=== PATIENT | female | born 1960 | race Caucasian/White ===

== ENCOUNTER 2021-01-25 07:22 | Outpatient (REF) | payer MEDICAID, SELFPAY | END 2021-01-25 07:23 | disposition home or self-care (01) | LOC: HO.HOSX 07:22 | PROVIDERS: Visit Provider Physician Assistant | DX: Z13.89 Encounter for screening for other disorder (principal) ==

== ENCOUNTER 2021-02-01 07:31 | Outpatient (REF) | payer MEDICAID, SELFPAY | END 2021-02-01 07:32 | disposition home or self-care (01) | LOC: HO.HOSX 07:31 | PROVIDERS: Visit Provider Physician Assistant | DX: Z13.89 Encounter for screening for other disorder (principal) ==

== ENCOUNTER 2021-02-27 13:26 | Outpatient (REF) | payer MEDICAID, SELFPAY | END 2021-02-27 13:27 | disposition home or self-care (01) | LOC: HO.HOSX 13:26 | PROVIDERS: Visit Provider Physician Assistant | DX: Z13.89 Encounter for screening for other disorder (principal) ==

== ENCOUNTER 2022-11-11 16:20 | Outpatient (REF) | payer MEDICAID, SELFPAY ==
[2022-11-11 18:03] LABS: MANUAL DIFF FLAG NO
[2022-11-11 18:11] LABS: Basophils Percent Auto 0.5 % (0-2); Eosinophils Absolute Auto 0.1 X10*3/uL (0.0-0.4); Eosinophils Percent Auto 2.6 % (0-4); Hematocrit 41.6 % (37.0-47.0); Imm Gran Abs Auto 0.02 X10*3/uL (0.00-0.03); Imm Gran Pct Auto 0.5 % (0.0-0.4); Lymphocytes Absolute Auto 1.1 X10*3/uL (1.2-4.9); Mean Corpuscular HGB Conc 33.7 g/dl (31.0-35.0); Mean Corpuscular Hemoglobin 31.7 pg (27.0-33.0); Mean Corpuscular Volume 94.1 fL (80.0-98.0); Mean Platelet Volume 10.7 fL (9.4-12.3); Monocytes Absolute Auto 0.3 X10*3/uL (0.1-1.2); Neutrophils Absolute Auto 2.7 x10*3/uL (2.0-8.3); Neutrophils Percent Auto 63.4 % (45-73); Platelet Count 211 X10*3/uL (160-400); Red Blood Count 4.42 X10*6/uL (4.20-5.50); Red Cell Distribution Width 12.6 % (11.0-16.0); White Blood Count 4.2 X10*3/uL (4.8-10.8)
[2022-11-11 19:04] LABS: Estimated Average Glucose 94 mg/dL; Hemoglobin A1c % 4.9 %
[2022-11-11 19:59] LABS: Folate 12.2 ng/mL (> or = 4.0); Vitamin B12 234 pg/mL (200-900)
[2022-11-11 20:22] LABS: Alanine Aminotransferase 11 U/L (0-31); Albumin Level 3.4 g/dL (3.5-5.0); Alkaline Phosphatase 58 U/L (39-117); Anion Gap 14 (12-20); Aspartate Amino Transferase 17 U/L (5-31); Bilirubin Total 0.2 mg/dL (0.0-1.0); Blood Urea Nitrogen 12 mg/dL (9-16); Calcium 9.1 mg/dL (8.4-10.2); Carbon Dioxide 26 mmol/L (22-29); Chloride 107 mmol/L (96-108); Cholesterol 198 mg/dL; Estimated Glomerular Filt Rate > 60; Glucose Random 102 mg/dL (60-115); HDL Cholesterol 60 mg/dL; LDL Cholesterol Calculated 121 mg/dl; Potassium 3.9 mmol/L (3.3-5.1); Sodium 143 mmol/L (135-145); Total Protein 5.9 g/dL (6.5-8.0); Triglycerides 87 mg/dL
[2022-11-11 20:41] LABS: TSH reflex Free T4 2.34 uIU/mL (0.32-4.0); Vitamin D 25-OH Total 14.4 ng/mL (>30)
[2022-11-12 08:49] LABS: HBS Num1 3.51 mIU/mL (0-7.99); HBc Num1 0.07 S/CO (0.00-0.79); HBsAGNum1 0.33 S/CO (0.00-0.99); HIV AB/AG Nonreactive (Nonreactive); HIV Num 1 0.06 S/CO (0.00-0.99); Hepatitis B Core Antibody Nonreactive (Nonreactive); Hepatitis B Surface Antigen Negative (Negative); ~HepC Num1 0.82 S/CO (0.00-0.79); ~Hepatitis A Antibody IgM Nonreactive (Nonreactive); ~Hepatitis B Surface Antibody NONREACTIVE (Nonreactive)
[2022-11-12 08:55] LABS: Syphilis Screen Nonreactive (Nonreactive)
[2022-11-12 10:16] LABS: ~HepC Num2 0.93; ~HepC Num3 0.85; ~Hepatitis C Antibody GRAYZONE (Nonreactive)
== END 2022-11-11 16:21 | disposition home or self-care (01) ==
LOC: HO.HHCL 16:20
PROVIDERS: Visit Provider Registered Nurse
DX: Z00.00 Encounter for general adult medical examination without abnormal findings (principal); Z20.2 Contact with and (suspected) exposure to infections with a predominantly sexual mode of transmission; E66.9 Obesity, unspecified; R03.0 Elevated blood-pressure reading, without diagnosis of hypertension
CPT/HCPCS: 36415; 80053; 80061; 82306; 82607; 82746; 83036; 84443; 85025; 86704; 86706; 86709; 86780; 86803; 87340; 87389

== ENCOUNTER 2023-07-01 12:23 | Outpatient (REF) | payer OTHER, MEDICAID, SELFPAY ==
--- NOTE | ~2023-07-01 | XR_ITS ---
EXAMINATION: XR BILATERAL KNEES CLINICAL INFORMATION: Chronic bilateral knee pain. Patient states pain for years. COMPARISON: Right knee 05/20/2019. TECHNIQUE: AP and lateral views of the left knee. AP, lateral and axial views of the right knee. FINDINGS: Right Knee: The bones are diffusely demineralized. Mild narrowing of the medial compartment. Small tricompartmental osteophytes. Trace suprapatellar effusion. Mild degenerative changes in the patellofemoral compartment. Left Knee: The bones are diffusely demineralized. Trace suprapatellar effusion. Mild narrowing of the lateral compartment. Tricompartmental osteophytes. Arterial calcifications. XR/XR knee LT 2V IMPRESSION: Mild degenerative changes in the bilateral knees.
--- NOTE | ~2023-07-01 | XR_ITS ---
EXAMINATION: XR BILATERAL KNEES CLINICAL INFORMATION: Chronic bilateral knee pain. Patient states pain for years. COMPARISON: Right knee 05/20/2019. TECHNIQUE: AP and lateral views of the left knee. AP, lateral and axial views of the right knee. FINDINGS: Right Knee: The bones are diffusely demineralized. Mild narrowing of the medial compartment. Small tricompartmental osteophytes. Trace suprapatellar effusion. Mild degenerative changes in the patellofemoral compartment. Left Knee: The bones are diffusely demineralized. Trace suprapatellar effusion. Mild narrowing of the lateral compartment. Tricompartmental osteophytes. Arterial calcifications. XR/XR knee RT 3V IMPRESSION: Mild degenerative changes in the bilateral knees.
== END 2023-07-01 12:24 | disposition home or self-care (01) ==
LOC: HO.HHCX 12:23
PROVIDERS: Visit Provider Student in an Organized Health Care Education/Training Program
DX: M25.561 Pain in right knee (principal); M25.562 Pain in left knee; G89.29 Other chronic pain
CPT/HCPCS: 73560; 73562

== ENCOUNTER 2023-10-17 08:35 | Outpatient (REF) | payer OTHER, MEDICAID, SELFPAY ==
[2023-10-17 10:21] LABS: Hematocrit 44.5 % (37.0-47.0); Hemoglobin 14.9 g/dl (12.0-16.0); Mean Corpuscular HGB Conc 33.5 g/dl (31.0-35.0); Mean Corpuscular Hemoglobin 31.2 pg (27.0-33.0); Mean Corpuscular Volume 93.3 fL (80.0-98.0); Platelet Count 212 X10*3/uL (160-400); Red Blood Count 4.77 X10*6/uL (4.20-5.50); Red Cell Distribution Width 12.7 % (11.0-16.0); White Blood Count 2.9 X10*3/uL (4.8-10.8)
[2023-10-17 10:38] LABS: Estimated Average Glucose 103 mg/dL; Hemoglobin A1c % 5.2 % (<6.0)
[2023-10-17 11:11] LABS: Alanine Aminotransferase 8 U/L (0-31); Albumin Level 3.6 g/dL (3.5-5.0); Alkaline Phosphatase 56 U/L (39-117); Anion Gap 18 (12-20); Aspartate Amino Transferase 15 U/L (5-31); Bilirubin Total 0.2 mg/dL (0.0-1.0); Blood Urea Nitrogen 14 mg/dL (9-16); Carbon Dioxide 24 mmol/L (22-29); Chloride 109 mmol/L (96-108); Cholesterol 185 mg/dL (<200); Estimated Glomerular Filt Rate > 60; Glucose Random 94 mg/dL (60-115); HDL Cholesterol 51 mg/dL (>40); LDL Cholesterol Calculated 111 mg/dL (<100); Potassium 4.5 mmol/L (3.3-5.1); Sodium 146 mmol/L (135-145); Total Protein 6.2 g/dL (6.5-8.0); Triglycerides 119 mg/dL (<150)
[2023-10-17 11:16] LABS: TSH reflex Free T4 2.19 uIU/mL (0.32-4.0)
[2023-10-17 11:24] LABS: Folate 6.8 ng/mL (> or = 4.0); Vitamin B12 225 pg/mL (200-900)
[2023-10-17 13:05] LABS: CT PCR NOT DETECTED (Not Detect.); NG PCR NOT DETECTED (Not Detect.)
[2023-10-19 03:33] LABS: Syphilis Screen Nonreactive (Nonreactive)
[2023-10-19 03:42] LABS: HBS Num1 4.09 mIU/mL (0-7.99); HBc Num1 0.08 S/CO (0.00-0.79); HBsAGNum1 0.27 S/CO (0.00-0.99); HIV AB/AG Nonreactive (Nonreactive); HIV Num 1 0.05 S/CO (0.00-0.99); Hepatitis B Core Antibody Nonreactive (Nonreactive); Hepatitis B Surface Antigen Negative (Negative); ~HepC Num1 0.81 S/CO (0.00-0.79); ~Hepatitis B Surface Antibody NONREACTIVE (Nonreactive)
[2023-10-19 04:17] LABS: ~HepC Num3 0.83; ~Hepatitis C Antibody GRAYZONE (Nonreactive)
[2023-10-23 16:04] LABS: HCV Log PCR <1.18 NOT DETECTED Log IU/mL (NOT DETECTED); HepC Viral Load <15 NOT DETECTED IU/mL (NOT DETECTED)
== END 2023-10-17 08:36 | disposition home or self-care (01) ==
LOC: HO.LAB 08:35
PROVIDERS: PCP Student in an Organized Health Care Education/Training Program; Visit Provider Student in an Organized Health Care Education/Training Program
DX: Z00.00 Encounter for general adult medical examination without abnormal findings (principal); Z13.1 Encounter for screening for diabetes mellitus; Z13.89 Encounter for screening for other disorder
CPT/HCPCS: 36415; 80053; 80061; 82306; 82607; 82746; 83036; 84443; 85027; 86704; 86706; 86780; 86803; 87340; 87389; 87491; 87522; 87591

== ENCOUNTER 2024-11-21 14:19 | Outpatient (REF) | payer OTHER, SELFPAY ==
--- NOTE | ~2024-11-21 | XR_ITS ---
EXAMINATION: XR HIP, LEFT CLINICAL INFORMATION: pt w hx of right hip surgery w ongoing pain COMPARISON: None available. TECHNIQUE: Two views of the left hip. FINDINGS: Total hip arthroplasty has been performed There is lucency at the bone metal interface of the proximal femoral stem, Gruen zones 1 and 6-7 . There is heterotopic calcification cephalad to the prosthetic neck. XR/XR hip LT min 2V IMPRESSION: Left total hip arthroplasty. There is lucency along the proximal femoral stem, Gruen zones 1 and 6-7 , probably insufficient to result in gross hardware loosening. There is no sign of hardware migration. Electronically signed by: Marcelino Root MD 11/21/2024 04:40 PM EDT
--- NOTE | ~2024-11-21 | XR_ITS ---
Exam: X-ray, bilateral knees.XR KNEE 1-2 VIEWS BILATERAL TECHNIQUE: AP standing, lateral lower extremity joint, bilateral knees INDICATION: chronic bl knee pain COMPARISON: July 01, 2023 FINDINGS: RIGHT KNEE: There is mild narrowing of the lateral joint space and mild to moderate narrowing of the medial joint space. There is no joint effusion. There are small to moderate tricompartmental marginal osteophytes. LEFT KNEE: There is no joint effusion. There is mild to moderate lateral greater than medial joint space narrowing similar to the prior. [id number] tricompartmental marginal ossified is present. There is chronic focal ossification in the region of the MCL near the adductor tubercle. There is focal ossification in the soft tissues lateral to the lateral femoral metaphysis. XR/XR Knee Hai 1or 2V IMPRESSION: Right knee: Stable mild to moderate osteoarthritis Left knee: Stable mild to moderate osteoarthritis. Remote MCL partial tear near the adductor tubercle with associated calcification. Electronically signed by: Marcelino Root MD 11/21/2024 04:38 PM EDT
--- OUTSIDE RECORDS SUMMARY | 2024-11-21 14:24 | XMS_ITS | Encounter Summary ---
Author Organization [employer] Address [address] [place] [address] Care Team Providers Care Technical Sales Representatives Name Role Phone Pat Walker Primary Care Provider [phone]- [phone] Maia Yarbrough MD Primary Care Pro vider Encounter Details Date Type Department Care Team (Late st Contact Info) Description 03/29/2022 Abstract [facility] [address] [place] [address] [phone] Provider, MD Fernanda Social History Tobacco Use Types Packs/Day Years Used Date Smoking Tobacco: Never Assessed Comments Unknown Sex and Gender Information Value Date Recorded Sex Assigned at Female 02/17/2022 10:14 AM EDT Legal Sex Female 10:14 AM EDT Gender Identity Female 02/17/2022 10:14 AM EDT Sexual Orientation Straight 07/01/2023 11 :24 AM EDT documented as of this encounter Plan of Treatment Upcoming Encounters Date Type Department Care Team (Late st Contact Info) Description 01/19/2025 2:45 PM EDT Office Visit [facility] [address] [place] [phone] Maia Yarbrough MD [address] [place] [address] [phone] documented as of this encounter Visit Diagnoses Not on filedocumented in this encounter Care Teams Technical Sales Representatives Relationship Specialty Start Date End Date Pat Walker FNP PCP - General Family Medicine 03/19/22 11/27/22 Maia Yarbrough MD [address] [place] [phone] PCP - General Internal Medicine 11/28/22 documented as of this encounter
--- OUTSIDE RECORDS SUMMARY | 2024-11-21 14:24 | XMS_ITS | Clinical Summary ---
Author Organization [facility] Address [address] [place] [address] Care Team Providers Care Agriculture Professor Name Role Phone Unavailable Primary Care Provider Unavailabl e Medical History Medical History Date Comments Arthritis DX:Arthritis Asthma DX:Asthma Social History Tobacco Use Types Packs/Day Years Used Date Smoking Tobacco: Every Day Smokeless Tobacco: Never Alcohol Use Standard Drinks/Week Comments Not Currently 0 (1 standard drink = 0.6 oz pur e alcohol) Comments Unknown Sex and Gender Information Value Date Recorded Sex Assigned at Female 07/05/2024 9:07 AM EDT Legal Sex Female 2:36 PM EST Gender Identity Female 07/05/2024 9:07 AM EDT Sexual Orientation Not on file Obstetrics History Plan of Treatment Upcoming Encounters Date Type Department Care Team (Late st Contact Info) Description 11/25/2024 9:00 AM EDT Appointment [facility] [address] [phone] Health Maintenance Due Date Last Done Comments DTaP,Tdap,and Td Vaccines (1 - Tdap) 1977 Pneumococcal Vaccine: 50+ Ye ars (1 of 2 - PCV) 1977 Zoster Vaccines (1 of 2) 02/28/2008 Colorectal Cancer Screening: Colonoscopy 03/19/2022 Hepatitis C Screening 03/19/2022 Osteoporosis Screening (Bone Density Screening) 03/19/2022 Social Influencers of Health Screening 03/19/2022 Falls Risk Assessment 2023 COVID-19 Vaccine (1 - 2023-2 5 season) 2023 Depression Screening 04/20/2024 Influenza Vaccine (#1) 2024 Breast Cancer Screening 07/16/2025 07/17/2023 RSV Immunization Adult Patie nts (1 - 1-dose 75+ series) 2033 HIB Vaccines Aged Out No longer eligi ble based on patient's age to complete this topic HPV Vaccines Aged Out No longer eligi ble based on patient's age to complete this topic Hepatitis A Vaccines Aged Out No long er eligible based on patient's age to complete this topic Hepatitis B Vaccines Aged Out No long er eligible based on patient's age to complete this topic IPV Vaccines Aged Out No longer eligi ble based on patient's age to complete this topic MMR Vaccines Aged Out No longer eligi ble based on patient's age to complete this topic Meningococcal ACWY Vaccine Aged Out N o longer eligible based on patient's age to complete this topic Meningococcal B Vaccine Aged Out No l onger eligible based on patient's age to complete this topic RSV Immunization Patients Un manuel 20 months Aged Out No longer eligible b ased on patient's age to complete this topic Varicella Vaccines Aged Out No longer eligible based on patient's age to complete this topic Procedures Procedure Name Priority Date/Time Associated Diagnosis Comments [facility] SCREENING DIGITAL Routine 07/17/2023 8:37 AM EDT Encounter for screening mammogram for malignant neoplasm of breast from Last 3 Months or Most Recently Relevant to Health Maintenance Results * [facility] SCREENING [facility]IGITAL (07/17/2023 8:37 AM EDT) Anatomical Region Laterality Modality Mammography 07/13/2023 3:09 PM EDT Narrative 07/17/2023 8:37 AM EDT [facility] Diagnostic Imaging Department [address] [place], [place] [id number] Patient: VIANEYJamiROXI./Age/Sex: 1960 - 63 - F Unit#: [id number] [facility] Mn[facility]onic/Ordering Site: [facility] Ordering Physician: ROXI DAHL MD An[facility] Screening Digital - 07/13/23 - 1533 Report Status:Signed EXAM: [facility] Screening Digital EXAM DATE AND TIME: 07/13/2023 3:33 PM HISTORY: Annual screening COMPARISON: None TECHNIQUE: Bilateral digital breast tomosynthesis was performed in the CC and MLO projections. Computer aided detection with Chartbeat 3D 3.1 was employed. TISSUE DENSITY: b. There are scattered areas of fibroglandular density. FINDINGS: There are 2 possible asymmetries in the left breast seen on the MLO view. There is a nodular density abutting the skin in the lower inner quadrant of the left breast. No associated calcifications or architectural distortion. There is a possible asymmetry in the retroareolar left breast seen best on the MLO view. No associated calcifications or architectural distortion. The right breast is unremarkable. IMPRESSION: There are 2 possible asymmetries in left breast as above. Recommend diagnostic mammogram of the left breast with spot compression MLO tomographic images. BI-RADS: Category 0: Incomplete - Need Additional Imaging Evaluation Dictating Physician: ALIZA PHELAN MD Electronically Signed by: ALIZA PHELAN MD Dic Date/Time: 07/17/23833 Sign date/Time: 07/17/23 0837 Procedure Note Aliza Phelan MD - 12/07/2023 [facility] Diagnostic Imaging Department [address] [place], [place] [id number] Patient: ROXI ROACH/Age/Sex: 1960 - 63 - F Unit#: [id number] Location/Status: [facility]/REG CLI Mnemonic/Ordering Site: [facility] Ordering Physician: ROXI DAHL MD [facility] Screening Digital - 07/13/23 - 1533 Report Status:Signed EXAM: [facility] Screening Digital EXAM DATE AND TIME: 07/13/2023 3:33 PM HISTORY: Annual screening COMPARISON: None TECHNIQUE: Bilateral digital breast tomosynthesis was performed in the CCand MLO projections. Computer aided detection with CareFlash AI 3D 3.1was employed. TISSUE DENSITY: b. There are scattered areas of fibroglandular density. FINDINGS: There are 2 possible asymmetries in the left breast seen on the MLOview. There is a nodular density abutting the skin in the lower inner quadrantof the left breast. No associated calcifications or architectural distortion.There is a possible asymmetry in the retroareolar left breast seen best on theMLO view. No associated calcifications or architectural distortion. The right breast is unremarkable. IMPRESSION: There are 2 possible asymmetries in left breast as above. Recommenddiagnostic mammogram of the left breast with spot compression MLO tomographicimages. BI-RADS: Category 0: Incomplete - Need Additional Imaging Evaluation Dictating Physician: ALIZA PHELAN MD Electronically Signed by: ALIZA PHELAN MD Dic Date/Time: 07/17/2334 Sign date/Time: 07/17/23 0837 Roxi Wallace MD IMG BI PROCEDURES Final Result from Last 3 Months or Most Recently Relevant to Health Maintenance Insurance Member Subscriber Plan / Payer (Ef fective 2023-Present) Name:Roxi Roach Relation to Subscriber:Self Name:Roxi Roach Payer ID:[id number] Group ID:[id number] Type:Not on file Address: [facility] [address] [id number]
== END 2024-11-21 14:20 | disposition home or self-care (01) ==
LOC: HO.HHCX 14:19
PROVIDERS: Visit Provider Student in an Organized Health Care Education/Training Program
DX: M25.552 Pain in left hip (principal); M25.561 Pain in right knee; M25.562 Pain in left knee; G89.29 Other chronic pain; M79.89 Other specified soft tissue disorders; F10.10 Alcohol abuse, uncomplicated; Z96.641 Presence of right artificial hip joint
CPT/HCPCS: 73502; 73560

== ENCOUNTER → 2024-11-21 14:19 | Outpatient (BNV) | payer OTHER, SELFPAY | PROVIDERS: Visit Provider Radiology Diagnostic Radiology | DX: M25.552 Pain in left hip (principal); M17.0 Bilateral primary osteoarthritis of knee | CPT/HCPCS: 73502; 73560 ==

== ENCOUNTER 2024-12-26 14:25 | Outpatient (AMB) | payer OTHER, SELFPAY ==
--- NOTE | 2024-12-26 14:36 | A.OFFVIS_ITS ---
Intake Visit Reasons: New Pt - Bilateral Knee OA Intake Note: Maia is a 64 year old female who presents today as a New Patient with complaints of Bilateral Knee Pain. Patient was referred by her PCP due to ongoing and worsening bilateral knee pain and Right Hip Pain. Patient reports that she has had ongoing pain that has worsened since she has stopped illicit drug use and alcohol. No history of cortisone injections. Currently she is at an inpatient program in [facility]. She smokes about 10 cigarettes a day. History of substance abuse - reported to PCP that she has been 5months sober from alcohol and crack cocaine, staying at [facility] in [place]. She will be discharged from this facility in 3 months. History of Left EPI at [facility]- She has utilized Lidocaine patches and topical Diclofenac with minimal relief. Xrays done at [facility] 11/21/24: Right knee: Stable mild to moderate osteoarthritis Left knee: Stable mild to moderate osteoarthritis. Remote MCL partial tear near the adductor tubercle with associated calcification Allergies No Known Allergies (No Known Allergies*) Allergy (Unverified 02/04/23 15:23) HPI HPI New Pt - Bilateral Knee OA: Details: Maia is a 64 year old female who presents today as a New Patient with right hip and knee pain. Patient was referred by her PCP due to ongoing and worsening bilateral knee pain and Right Hip Pain. Patient reports that she has had ongoing pain that has worsened since she has stopped recreational drug use and alcohol. No history of cortisone injections. Currently she is at an inpatient program in [place]. She complains of difficulty ambulating and requiring an assistive device at times. She smokes about 10 cigarettes a day. History of substance abuse - reported to PCP that she has been 5months sober from alcohol and crack cocaine, staying at [facility] in [place]. She will be discharged from this facility in 3 months. History of Left EPI at [facility]- She has utilized Lidocaine patches and topical Diclofenac with minimal relief. [facility] Medical History (Updated 01/02/25 @ 08:09 by Roderick Fountain MD) Hypertension COPD (chronic obstructive pulmonary disease) Nicotine dependence, cigarettes, uncomplicated Alcohol use disorder Substance abuse Anxiety and depression Insomnia Osteoarthritis of knees, bilateral Urinary incontinence Hearing loss Family history of breast cancer Surgical History (Updated 12/23/24 @ 09:31 by Marisel Salazar PA-C) History of left hip replacement (~2012) Family History (Updated 12/23/24 @ 09:21 by Marisel Salazar PA-C) Mother Breast cancer Maternal Grandmother Breast cancer Social History (Updated 12/14/24 @ 10:08 by Meagan Garcia CMA) Substance Use Type: Crack/Cocaine Last Used Substance Other:: 5 months as of 11/22/24 - seeing [facility] Physical Exam Extrem Other: + gait antalgia +impingmeent and + [place] Internal rotation of the right hip is very limited Right knee with medial tenderness and no effusion. 5-125 bilaterally Stable to v/v stress bilaterally Results Reviewed Results Reviewed: I personally reviewed relevant radiographs. Moderate to severe bilateral knee OA Left EPI in expected post operative position with no hardware complications or evidence of loosening Assessment & Plan Assessment & Plan (1) Osteoarthritis of knees, bilateral: Code(s): M17.0 - Bilateral primary osteoarthritis of knee Category: Medical Plan: Currently doing ok. Here to re-establish care. In active recovery. No intervention warranted (2) Primary osteoarthritis of right hip: Code(s): M16.11 - Unilateral primary osteoarthritis, right hip Category: Medical Plan: Radiographs to be obtained at follow up in 3 months. Currently complaining of right hip pain with limited motion. She will f/u in 3 months. Coding Level of Care Code New Pt Level 3 (44180) Diagnoses Osteoarthritis of knees, bilateral M17.0 Primary osteoarthritis of right hip M16.11
--- OUTSIDE RECORDS SUMMARY | 2024-12-26 16:49 | XMS_ITS | Encounter Summary ---
Author Organization [employer] Address [address] [place] [address] [address] [place] [address] Care Team Providers Care Power Press Tender Name Role Phone Pat Walker Primary Care Provider Maia Figueroa MD Primary Care Pro vider Encounter Details Date Type Department Care Team (Late st Contact Info) Description 03/29/2022 Abstract [facility] MED[facility] [address] [place] [phone] Provider, MD Fernanda Social History Tobacco Use [...] Description 01/19/2025 2:45 PM EDT Office Visit [facility] [address] [place] [phone] Maia Yarbrough MD [address] [place] [phone] documented as of this encounter Visit Diagnoses Not on filedocumented in this encounter Care Teams Power Press Tender Relationship Specialty Start Date End Date Pat Walker FNP PCP - General Family Medicine 03/19/22 11/27/22 Maia Yarbrough MD [address] [place] [address] [phone] PCP - General Internal Medicine 11/28/22 documented as of this encounter
--- OUTSIDE RECORDS SUMMARY | 2024-12-26 16:49 | XMS_ITS | Clinical Summary ---
Author Organization [employer] Address [address] [facility] [address] [place] [address] Care Team Providers Care Senior Sales Associate Name Role Phone Maia Yarbrough MD Primary Care Pro vider Allergies No known active allergies Medications * This document contains information received from the source organization and may not represent a complete record from that organization. Blood Pressure Monitor kit 1 Device Once per day. 1 kit 4 Active hydrOXYzine HCl (Atarax) 25 MG tablet 5 Active albuterol (ProAir HFA) 108 (90 Base) MCG/ACT inhalerIndicatio ns:Cigarette nicotine dependence without complication Inhale 2 puffs every 4 (four) hours if needed for wheezing. 18 g 3 5 Active lidocaine (Lidoderm) 5 % patchIndications :Chronic pain of both knees Apply 1 patch topically Once per day. Remove & discard patch within 12 hours or as directed by MD. 30 patch 2 5 Active amLODIPine (Norvasc) 5 MG tablet Take 1 tablet (5 mg) by mouth Once per day. 90 tablet 5 11/22/19 26 Active Umeclidinium Dixon 62.5 MCG/ACT aerosol powder Inhale 1 Act (62.5 mcg) Once per day. 30 Act 5 5 11/22/19 26 Active melatonin 10 MG tablet Take 1 tablet (10 mg) by mouth if needed at bedtime (insomnia). 90 tablet 5 Active Diclofenac Sodium 1 % gel Apply 1 Application topically if needed each day (kne pain). 50 g 2 5 Active Active Problems Problem Noted Date Diagnosed Date Left hip pain 11/22/2024 Cocaine use 11/22/2024 Localized swelling of both lower legs 11/22/2024 Leukopenia 11/22/2024 Hypertension 10/06/2023 Bereavement 08/27/2023 Assessment & Plan (09/01/2023 12:50 PM EDT): During IBH Consult Maia presenting with depressed mood, loss of interests/pleasure , changes in sleep difficulty staying asleep , change in appetite or weight reduce appetite, psychomotor retardation, trouble concentrating, fatigue/loss of energy, inappropriate guilt , hopelessness, worthlessness , difficulty concentrating, extreme sadness when talking about loved ones who , difficulty accepting their ; for a period of 6-12 mo, for all symptoms in the context of and housing. Maia feels emotionally overwhelmed due to experiencing different stressors. Her brother and sibling early in 2022. Currently living with friends; home environment is not appropriate for telehealth visits. Pt feels discouraged. PLAN: (check all that apply) Continue with current services (defined as services in the past 12 months) . Pt is currently engaged in services with [facility]. However, pt is not satisfied with telehealth visits due to lack of privacy for calls. She will request transfer to new therapist for in-person visits and will let clinician know if extra support is needed. Obesity 07/02/2023 Hearing loss 07/02/2023 Chronic pain of both knees 07/02/2023 Family history of breast cancer 07/02/2023 History of ETOH abuse 07/02/2023 Urinary incontinence 07/02/2023 Poor memory 07/02/2023 Depression, recurrent 07/01/2023 Assessment & Plan (09/01/2023 12:50 PM EDT): During IBH Consult Maia presenting with depressed mood, loss of interests/pleasure , changes in sleep difficulty staying asleep , change in appetite or weight reduce appetite, psychomotor retardation, trouble concentrating, fatigue/loss of energy, inappropriate guilt , hopelessness, worthlessness , difficulty concentrating, extreme sadness when talking about loved ones who , difficulty accepting their ; for a period of 6-12 mo, for all symptoms in the context of and housing. Maia feels emotionally overwhelmed due to experiencing different stressors. Her brother and sibling early in 2022. Currently living with friends; home environment is not appropriate for telehealth visits. Pt feels discouraged. PLAN: (check all that apply) Continue with current services (defined as services in the past 12 months) . Pt is currently engaged in services with [facility]. However, pt is not satisfied with telehealth visits due to lack of privacy for calls. She will request transfer to new therapist for in-person visits and will let clinician know if extra support is needed. Tympanic membrane perforation, left 11/28/2022 Overview (11/28/2022): Hear loss L ear since 06/26/22 Chronic Referred Audiology 06/26/22 Assessment & Plan (11/28/2022 3:22 PM EDT): TM perforated on exam with blood in canal Concern or injury No infection Pt will call Audiology and set up appt F/u 3 months or sooner PRN with new PCP Health care maintenance 06/29/2022 Overview (11/28/2022): Routine Health Maintenance: Immunizations: Due shingles vaccine, discuss next visit HIV: Nonreactive 11/11/22 Hep C: GRAYZONE Comment: Antibodies to HCV may or may not be present. Suggest repeatanti-HCV in 4-6 weeks and/or HCV viral load if clinically indicated. Hepatitis B: nonreactive surface antibodies due repeat booster vaccine series Pap Smear: 06/11/2020 NILM HPV Neg Mammogram: No records, reports she had it in 2021 BMD: >age 65. Discuss next visit Colonoscopy: Due colonoscopy, refer to GI Lung cancer: Every day smoker, 53 pack year history. Due screening Eye: Discuss next visit Dental: Discuss next visit History of total left hip arthroplasty Overview (05/28/2022): Operation in 2013 Osteopenia 05/28/2022 Overview (05/28/2022): 2013 skeletal survey finding: Multiple lucencies in bilateral femoris, proximal left tibia and fibula. These are suspicious for multiple myeloma . Differential diagnosis includes severe iatrogenic osteopenia versus steroid-induced. Recommend bone scan or iliac crest biopsy. There is severe osteoarthritic changes with moderate spurring in both hip joints with deformity of femoral heads. Anxiety 06/01/2019 Chronic idiopathic neutropenia 06/01/2019 Chronic obstructive lung disease 06/01/2019 Overview (11/28/2022): Reports poor breathing Current daily tobacco use Assessment & Plan (11/28/2022 3:19 PM EDT): Refer pulmonology F/u 3 months or sooner PRN Nicotine dependence 06/01/2019 Overview (11/11/2022): Discussed smoking cessation Declined nicotine patches Refill JEANETTE PRN Needs followup on COPD and breathing Assessment & Plan (11/28/2022 3:18 PM EDT): Discussed smoking cessation Declined nicotine patches Refill JEANETTE, use PRN Needs followup on COPD and breathing F/u 3 months with new PCP or sooner PRN Osteoarthritis of right hip 06/01/2019 Overview (11/11/2022): Pt reports continued R hip pain Altered gait, poor balance DME for walker, using daily Lidocaine patches, nabumetone 500 mg BID Assessment & Plan (11/11/2022 3:48 PM EDT): Refill lidocaine patches Continued pain, improved with nabumetone F/u PRN Primary insomnia 06/01/2019 Encounters Date Type Department Care Team Description 12/08/2024 Telephone [facility] [address] [place] [address] Maia Yarbrough MD Request For Order(s) 11/22/2024 Telephone [facility] [address] [place] [address] Glenda Baker appointment reminder 11/22/2024 Results Follow-Up [facility] [address] [place] [address] Maia Yarbrough MD XR Hip 2 or 3 Views Left 11/21/2024 1:00 PM EDT Office Visit [address] [address] Maia Yarbrough MD Colon cancer screening (Primary Dx); Cigarette nicotine dependence without complication; Postmenopausal; Chronic pain of both knees; Pain of right hip; Chronic bronchitis, unspecified chronic bronchitis type (CMS/HCC); Swelling of lower extremity; Left hip pain; Health care directive on file; Alcohol abuse; Dietary counseling; Exercise counseling; Hypertension, unspecified type; Class 1 obesity due to excess calories without serious comorbidity with body mass index (BMI) of 34.0 to 34.9 in adult; Health care maintenance; History of ETOH abuse; Poor memory; Cocaine use; Localized swelling of both lower legs; Leukopenia, unspecified type 11/21/2024 Travel 11/18/[address] [address] Maia Yarbrough MD chartprep 11/11/2024 Patient Outreach [address] [address] Maia Yarbrough MD Pre-visit Planning (Pre-visit planning - LVM ) 11/02/2024 Orders Only [facility] [address] [place] [address] Edwin Phillips MD Mass of left breast, unspecified quadrant from Last 3 Months Immunizations Immunization Administration Dates Next Due Influenza injectable quadriv alent preservative free 06/26/2022,06/11/2020,05/20/2019 Pfizer Covid-19 Vaccine 12+ 07/01/2023 Pneumococcal Conjugate PCV 20 11/11/2022 Pneumococcal Polysaccharide PPSV23 05/20/2019 Tdap 05/20/2019 Family History Medical History Relation Name Comments Stroke Brother Stroke Father Breast cancer Maternal Grandmother Breast cancer at 67 Mother Heart disease Sister Relation Name Status Comments Brother Father Maternal Grandmother Mother Sister Social History Tobacco Use Types Packs/Day Years Used Date Smoking Tobacco: Every Day Cigarettes 1 53 Smokeless Tobacco: Never Tobacco Cessation:Ready to Q uit: Not Asked; Counseling Given: Not Answered Comments:Started smoking 9 y of age ,never stopped, smoking until now-until now 52 y of smoking -in average 10 cig a day .PQT calc a year 25 Alcohol Use Standard Drinks/Week Comments Yes 2 (1 standard drink = 0.6 oz pure alcohol) weekly-beers 6 cans , hx of heavy drinking Depression Answer Date Recorded Patient Health Questionnaire-9 Score 16 09/01/2023 Patient Health Questionnaire-9 Score 16 09/01/2023 Last PHQ-9: Questionnaire Data Not on file 0 09/01/2023 Housing Stability Answer Date Recorded What is your housing situation today? I do not have housing (Staying with others, in a hotel, in a assisted, living outside on the street, on a beach, in a car, or in a park 11/21/[address] you li ve. Do you have problems with any of the following? None of the above 11/21/2024 Food Insecurity Answer Date Recorded Within the past 12 months, y ou worried that your food would run out before you got money to buy more: Never True 11/21/2024 Within the past 12 months,th e food you bought just didn't last and you didn't have enough money to get more: Never True 07/2024 Transportation Answer Date Recorded In the past 12 months, has l ack of transportation kept you from medical appts, meetings, work or from getting things needed for daily living? No 11/21/2024 Utilities Answer Date Recorded In the past 12 months, has t he electric, gas, oil or water company threatened to shut off services in your home? No 11/21/2024 Depression Answer Date Recorded Patient Health Questionnaire-2 Score 4 09/01/2023 Internet Access Answer Date Recorded Internet Access Q1 I am not sure 11/21/2024 Internet Access Q2 Not on file 11/21/2024 Comments Unknown Sex and Gender Information Value Date Recorded Sex Assigned at Female 02/17/2022 10:14 AM EDT Legal Sex Female 10:14 AM EDT Gender Identity Female 02/17/2022 10:14 AM EDT Sexual Orientation Straight 07/01/2023 11 :24 AM EDT Last Filed Vital Signs Vital Sign Reading Time Taken Comments Blood Pressure 146/62 11/21/2024 1:00 PM EDT Pulse 91 11/21/2024 1:00 PM EDT Temperature 36.3 C (97.3 F) 11/21/2024 1:00 PM EDT Respiratory Rate 20 11/21/2024 1:00 PM EDT Oxygen Saturation 99% 11/21/2024 1:00 PM EDT Inhaled Oxygen Concentration - - Weight 83.9 kg (185 lb) 11/21/2024 1:00 PM EDT Height 160 cm (5' 3 ) 11/21/2024 1:00 PM EDT Body Mass Index 32.77 11/21/2024 1:00 PM EDT Plan of Treatment Upcoming Encounters Date Type Department Care Team (Late st Contact Info) Description 01/19/2025 2:45 PM EDT Office Visit [facility] [address] [place], [place] [phone] Maia Yarbrough MD [address] [place], [place] [phone] Health Maintenance Due Date Last Done Comments CT Colonography 1960 Colonoscopy 1960 Colorectal Cancer Screening 1960 FIT DNA/Cologuard 1960 FIT 1960 FOBT 1960 Sigmoidoscopy 1960 Lung Cancer Screening 02/28/2008 RSV Patients and Patients Aged 60 years or older (1 - Risk 60-74 years 1-dose series) 2018 COVID-19 Vaccine (2 - Pfizer risk series) 07/22/2023 07/01/2023 Depression Monitoring 03/03/2024 09/01/2023 , 09/01/2023 Influenza Vaccine (#1) 2024 , 06/11/2020, 05/20/2019 Zoster Vaccines (2 of 2) 01/31/2025 12/06/2024 HPV/Cotest 06/11/2025 06/11/2020 Pap Smear 06/11/2025 06/11/2020 Alcohol/Substance Use Screening 11/21/2025 11/21/2024 SDOH Screening 11/21/2025 11/21/2024 Tobacco Screening 11/21/2025 11/21/2024 Mammogram 11/25/2026 11/25/2024, 11/25/2024, 07/23/2023 Lipid Panel 10/16/2028 10/17/2023, 11/11/2022, 12/25/2020 DTaP/Tdap/Td Vaccines (2 - T d or Tdap) 05/20/2029 05/20/2019 Pneumococcal Vaccine: 50+ Years Completed 11/11/2022, 05/20/2019 Hepatitis C Screening Completed 10/17/2023 , 10/17/2023, 11/11/2022 HIB Vaccines Aged Out No longer eligi [...] patient's age to complete this topic Meningococcal Vaccine Aged Out No cheryl norman eligible based on patient's age to complete this topic RSV under 20 months Aged Out No longe r eligible based on patient's age to complete this topic Rotavirus Vaccines Aged Out No longer eligible based on patient's age to complete this topic Procedures Procedure Name Priority Date/Time Associated Diagnosis Comments XR HIP 2 OR 3 VIEWS LEFT Routine 11/21/2024 4:15 PM EDT Left hip pain XR KNEE 1-2 VIEWS BILATERAL Routine 11/21/2024 1:44 PM EDT Chronic pain of both knees HEPATITIS C AB W/REFL TO HCV RNA, QN, PCR Routine 10/17/2023 9:02 AM EDT Annual physical exam LIPID PANEL, STANDARD Routine 10/17/2023 9:02 AM EDT Annual physical exam HPV GENOTYPES 16,18/45 Routine 06/11/2020 12:00 AM EST THINPREP PAP Routine 06/11/2020 12:00 AM EST from Last 3 Months or Most Recently Relevant to Health Maintenance Results * XR Hip 2 or 3 Views Left (11/21/2024 4:15 PM EDT) Anatomical Region Laterality Modality Lower Extremities, Hip Left Radiograp hic Imaging 11/21/2024 4:15 PM EDT Narrative 11/21/2024 4:43 PM EDT [address] [address] XRay Report Signed Patient: Maia Roach MR#: [id number] : 1960 Acct:[id number] Age/Sex: 64 / F ADM Date: 11/21/24 Loc: HO.HHCX Attending Dr: Maia Wallace MD Ordering Physician: Maia Yarbrough MD Date of Service: 11/21/24 Procedure(s): XR hip LT min 2V Accession Number(s): [id number] cc: Maia Yarbrough MD EXAMINATION: XR HIP, LEFT CLINICAL INFORMATION: pt w hx of right hip surgery w ongoing pain COMPARISON: None available. TECHNIQUE: Two views of the left hip. FINDINGS: Total hip arthroplasty has been performed There is lucency at the bone metal interface of the proximal femoral stem, Gruen zones 1 and 6-7 . There is heterotopic calcification cephalad to the prosthetic neck. XR/XR hip LT min 2V IMPRESSION: Left total hip arthroplasty. There is lucency along the proximal femoral stem, Gruen zones 1 and 6-7 , probably insufficient to result in gross hardware loosening. There is no sign of hardware migration. Electronically signed by: Marcelino Root MD 11/21/2024 04:40 PM EDT Dictated By: Marcelino Root MD Signed By: <Electronically signed by Marcelino Root MD in OV> 11/21/24 1640 DD/ 1615 TD/TT: 11/21/24 1616 Chlorobutadiene Scrubber Operator: Procedure Note Donotuseinterpreter, Image - 11/21/[address] [address] XRay Report Signed Patient: Maia RoachMR#: [id number] : 1960cct:[id number] Age/Sex: 64 / FADM Date: 11/21/24 Loc: HO.HHCX Attending Dr: Maia Wallace MD Ordering Physician: Maia Yarbrough MD Date of Service: 11/21/24 Procedure(s): XR hip LT min 2V Accession Number(s): [id number] cc: Maia Yarbrough MD EXAMINATION: XR HIP, LEFT CLINICAL INFORMATION: pt w hx of right hip surgery w ongoing pain COMPARISON: None available. TECHNIQUE: Two views of the left hip. FINDINGS: Total hip arthroplasty has been performed There is lucency at the bone metal interface of the proximal femoral stem, Gruen zones 1 and 6-7 . There is heterotopic calcification cephalad to the prosthetic neck. XR/XR hip LT min 2V IMPRESSION: Left total hip arthroplasty. There is lucency along the proximal femoral stem, Gruen zones 1 and 6-7 , probably insufficient to result in gross hardware loosening. There is no sign of hardware migration. Electronically signed by: Marcelino Root MD 11/21/2024 04:40 PM EDT Dictated By: Marcelino Root MD Signed By: <Electronically signed by Marcelino Root MD in OV> 11/21/24 1640 DD/ 1615 TD/TT: 11/21/24 1616 Chlorobutadiene Scrubber Operator: us Maia Wallace MD IMG XR PROCEDURES Final Result * XR Knee 1-2 Views Bilateral (11/21/2024 1:44 PM EDT) Anatomical Region Laterality Modality Lower Extremities, Knee Bilateral Radiogra phic Imaging 11/21/2024 1:44 PM EDT Narrative 11/21/2024 4:40 PM EDT [address] [address] XRay Report Signed Patient: Maia Roach MR#: [id number] : 1960 Acct:[id number] Age/Sex: 64 / F ADM Date: 11/21/24 Loc: HO.HHCX Attending Dr: Maia Wallace MD Ordering Physician: Maia Yarbrough MD Date of Service: 11/21/24 Procedure(s): XR Knee Hai 1or 2V Accession Number(s): [id number] cc: Maia Yarbrough MD Exam: X-ray, bilateral knees.XR KNEE 1-2 VIEWS BILATERAL TECHNIQUE: AP standing, lateral lower extremity joint, bilateral knees INDICATION: chronic bl knee pain COMPARISON: July 01, 2023 FINDINGS: RIGHT KNEE: There is mild narrowing of the lateral joint space and mild to moderate narrowing of the medial joint space. There is no joint effusion. There are small to moderate tricompartmental marginal osteophytes. LEFT KNEE: There is no joint effusion. There is mild to moderate lateral greater than medial joint space narrowing similar to the prior. [id number] tricompartmental marginal ossified is present. There is chronic focal ossification in the region of the MCL near the adductor tubercle. There is focal ossification in the soft tissues lateral to the lateral femoral metaphysis. XR/XR Knee Hai 1or 2V IMPRESSION: Right knee: Stable mild to moderate osteoarthritis Left knee: Stable mild to moderate osteoarthritis. Remote MCL partial tear near the adductor tubercle with associated calcification. Electronically signed by: Marcelino Root MD 11/21/2024 04:38 PM EDT Dictated By: Marcelino Root MD Signed By: <Electronically signed by Marcelino Root MD in OV> 11/21/24 1638 DD/ 1344 TD/TT: 11/21/24 1400 Chlorobutadiene Scrubber Operator: Procedure Note Donotuseinterpreter, Image - 11/21/[address] [address] XRay Report Signed Patient: Bennie Roach#: [id number] : 1960cct:[id number] Age/Sex: 64 / FADM Date: 11/21/24 Loc: HO.HHCX Attending Dr: Maia Wallace MD Ordering Physician: Maia Yarbrough MD Date of Service: 11/21/24 Procedure(s): XR Knee Hai 1or 2V Accession Number(s): [id number] cc: Maia Yarbrough MD Exam: X-ray, bilateral knees.XR KNEE 1-2 VIEWS BILATERAL TECHNIQUE: AP standing, lateral lower extremity joint, bilateral knees INDICATION: chronic bl knee pain COMPARISON: July 01, 2023 FINDINGS: RIGHT KNEE: There is mild narrowing of the lateral joint space and mild to moderate narrowing of the medial joint space. There is no joint effusion. There are small to moderate tricompartmental marginal osteophytes. LEFT KNEE: There is no joint effusion. There is mild to moderate lateral greater than medial joint space narrowing similar to the prior. [id number] tricompartmental marginal ossified is present. There is chronic focal ossification in the region of the MCL near the adductor tubercle. There is focal ossification in the soft tissues lateral to the lateral femoral metaphysis. XR/XR Knee Hai 1or 2V IMPRESSION: Right knee: Stable mild to moderate osteoarthritis Left knee: Stable mild to moderate osteoarthritis. Remote MCL partial tear near the adductor tubercle with associated calcification. Electronically signed by: Marcelino Root MD 11/21/2024 04:38 PM EDT Dictated By: Marcelino Root MD Signed By: <Electronically signed by Marcelino Root MD in OV> 11/21/24 1638 DD/ 1344 TD/TT: 11/21/24 1400 Chlorobutadiene Scrubber Operator: us Maia Wallace MD IMG XR PROCEDURES Final Result * Hepatitis C Antibody with Reflex to HCV, RNA, Quantitative, Real-Time PCR (10/17/2023 9:02 AM EDT) Hepatitis C Antibody GRAYZONE Nonreactive [facility] Comment:Antibodies to HCV ma y or may not be present. Suggest repeatanti-HCV in 4-6 weeks and/or HCV viral load if clinicallyindicated. Blood Venous blood specimen / Unknown 10/17/2023 9:02 AM EDT 10/17/2023 9:14 AM EDT us Maia Wallace MD LAB BLOOD ORDERAB LES Final Result Performing Organization Address [facility]/ZIP Co de Phone Number [facility] [address] [place] [address] [phone] * (ABNORMAL) Lipid Panel, Standard (10/17/2023 9:02 AM EDT) Triglycerides 119 <150 mg/dL [facility] Comment:Desirable Triglyceri de: less than 150 mg/dLBorderline High Triglyceride 150-199 mg/dLHigh Triglyceride: 200-499 mg/dLVery High Triglyceride: greater than or equal to 5OO mg/dL Cholesterol 185 <200 mg/dL [facility] Comment:Desirable Cholestero l: less than 200 mg/dLBorderline High Cholesterol: 200-239 mg/dLHigh Cholesterol: greater than 239 mg/dL LDL Cholesterol Calculated 111(H) <100 mg/dL [facility] Comment:Desirable LDL: less than 100 mg/dLNear Optimal/Above Optimal LDL: 110- 129 mg/dLBorderline High LDL: 130-159 mg/dLHigh LDL: 160-189 mg/dLVery High LDL: greater than or equal to 190 mg/dL HDL Cholesterol 51 >40 mg/dL [facility] Comment:Desirable HDL: great er than 40 mg/dL Note: This HDL assay may give artificially low results in patients with liver disease. Blood Venous blood specimen / Unknown 10/17/2023 9:02 AM EDT 10/17/2023 9:14 AM EDT Maia Wallace MD LAB BLOOD ORDERAB LES Final Result Performing Organization Address City/[facility]/ZIP Co de Phone Number [facility] [address] [place] [address] [phone] * THINPREP PAP (06/11/2020 12:00 AM EST) Clinical Information: None given [facility] COMMENT SEE [facility]MENT [facility] Comment: EXPLANATORY NOTE: The Pap is a screening test for cervical cancer. It is not a diagnostic test and is subject to false negative and false positive results. It is most reliable when a satisfactory sample, regularly obtained, is submitted with relevant clinical findings and history, and when the Pap result is evaluated along with historic and current clinical information. Reservations Sales Agent: SEE COMMENT [facility] Comment: ALS, CT(ASCP) CT screening location: [place] [address] Interpretation/Res ult: SEE COMMENT [facility] Comment: Negative for intraepithelial lesion or malignancy. Atrophic pattern; predominantly parabasal cells LMP: NONE [facility]IV[facility] Prev. BX: NONE [facility] Prev. PAP: NONE [facility]IV[facility] Review Reservations Sales Agent: [facility] Comment: BLC,CT(ASCP) CT screening location: [place] [address] SOURCE: None given [facility] Statement Of Adequacy: SATISFACTORY FOR EVALUATION [facility] 06/11/2020 Rajendra Kimball MD LAB PATHOLOGY ORDERABLES Fin al Result Performing Organization Address [facility] Co de Phone Number [facility] [address] * HPV GENOTYPES 16,18/45 (06/11/2020 12:00 AM EST) HPV 16 RNA NOT DETECTED NOT DETECTED [facility] HPV 18/45 RNA NOT DETECTED NOT DETECTED [facility] Comment: Methodology: Model Builder Display Mediated Amplification The analytical performance characteristics of this assay have been determined by [employer] ([employer]). The modifications have not been cleared or approved by the FDA. This assay has been validated pursuant to the CLIA regulations and is used for clinical purposes. 06/11/2020 Rajendra Kimball MD LAB CYTOLOGY ORDERABLES Christy l Result Performing Organization Address [facility] Co de Phone Number [facility] [address] [place] [address], from Last 3 Months or Most Recently Relevant to Health Maintenance Insurance [employer] (HMO D-SNP) DONI ANDINO [id number] Care Teams Senior Sales Associate Relationship Specialty Start Date End Date Maia Yarbrough MD [address] [place] [phone] PCP - General Internal Medicine 11/28/22
--- OUTSIDE RECORDS SUMMARY | 2024-12-26 16:49 | XMS_ITS | Encounter Summary ---
Author Organization [employer] Address [address] [facility] 7t [place] [address] Care Team Providers Care Foundry Worker Name Role Phone Pat Walker DELIVERER OUTSIDE Primary Care Provider Maia Figueroa MD Primary Care Pro vider Reason for Visit * Reason Comments Med Change Request Encounter Details Date Type Department Care Team (Late st Contact Info) Description 06/26/2022 Refill [facility]INE [address] [place] [address] Pat Walker FNP Elevated BP without diagnosis of hypertension Social History Tobacco Use Types Packs/Day Years Used Date Smoking Tobacco: Every Day Cigarettes 1 53 Smokeless Tobacco: Never Alcohol Use Standard Drinks/Week Comments Yes 2 (1 standard drink = 0.6 oz pur e alcohol) Depression Answer Date Recorded Patient Health Questionnaire-9 Score 14 06/26/2022 Depression Answer Date Recorded Patient Health Questionnaire-2 Score 6 06/26/2022 Comments Unknown Sex and Gender Information Value Date Recorded Sex Assigned at Female 02/17/2022 10:14 AM EDT Legal Sex Female 10:14 AM EDT Gender Identity Female 02/17/2022 10:14 AM EDT Sexual Orientation Straight 07/01/2023 11 :24 AM EDT COVID-19 Exposure Response Date Recorded In the last 10 days, have yo u been in contact with someone who was confirmed or suspected to have Coronavirus/COVID-19? No / Unsure 06/26/2022 2:01 PM EST documented as of this encounter Functional Status * Over the past 2 weeks, how often have you been bothered by any of the following problems? Question Answer Date of Assessment Author Little interest or pleasure in doing things Nearly every day 06/26/2022 2:54 PM Juana Cruz MA Feeling down, depressed, or hopeless Nearly every day 06/26/2022 2:54 PM Junaa Cruz MA Patient Health Questionnaire-2 Score 6 06/26/2022 2:54 PM Juana Cruz MA * Question Answer Date of Assessment Author Trouble falling or staying asleep, or sleeping too much More than half the days 06/26/2022 2:54 PM Juana Cruz MA Feeling tired or having little energy More than half the days 06/26/2022 2:54 PM Juana Cruz MA Poor appetite or overeating More than half the days 06/26/2022 2:54 PM Juana Cruz MA Feeling bad about yourself - or that you are a failure or have let yourself or your family down Several days 06/26/2022 2:54 PM Juana Cruz MA Trouble concentrating on things, such as reading the newspaper or watching television Several days 06/26/2022 2:54 PM Juana Cruz MA Moving or speaking so slowly that other people could have noticed? Or the opposite - being so fidgety or restless that you have been moving around a lot more than usual. Not at all 06/26/2022 2:54 PM Juana Cruz MA Thoughts that you would be better off or hurting yourself in some way Not at all 06/26/2022 2:54 PM Juana Cruz MA Patient Health Questionnaire-9 Score 14 06/26/2022 2:54 PM Juana Cruz MA * If you checked off any problems on this questionnaire so far, Question Answer Date of Assessment Author How difficult have these problems made it for you to do your work, take care of things at home, or get along with other people? Somewhat difficult 06/26/2022 2:54 PM Juana Cruz MA documented as of this encounter Plan of Treatment Upcoming Encounters Date Type Department Care Team (Late st Contact Info) Description 01/19/2025 2:45 PM EDT Office Visit [address] [address] Maia Yarbrough MD [address] [place] [address] documented as of this encounter Visit Diagnoses Diagnosis Elevated BP without diagnosis of hypertension documented in this encounter Additional Health Concerns Assessment Noted Time PHQ-9 Depression Total Score: 14 023 2:54 PM EST documented as of this encounter Care Teams Foundry Worker Relationship Specialty Start Date End Date Pat Walker FNP PCP - General Family Medicine 03/19/22 11/27/22 Maia Yarbrough MD [address] [place] [address] PCP - General Internal Medicine 11/28/22 documented as of this encounter
--- OUTSIDE RECORDS SUMMARY | 2024-12-26 16:49 | XMS_ITS | Clinical Summary ---
Author Organization [facility] Address [address] [place] [address] Phone Care Team Providers Care Tuft Machine Operator Name Role Phone Edwin Phillips Primary Care Provide r Encounters Date Type Department Care Team Description 11/30/2024 8:30 AM EDT Ancillary Procedure [facility] [address] [place] [phone] Swelling of lower extremity 11/25/2024 8:50 AM EDT - 11/25/2024 11:59 PM EDT [facility] [address] [address] Unspecified lump in unspecified breast Discharge Disposition: Home or Self Care from Last 3 Months Medical History Medical History Date Comments Arthritis [...] Female 07/05/2024 9:07 AM EDT Sexual Orientation Straight 11/24/2024 12 :40 PM EDT Obstetrics History Plan of Treatment Health Maintenance Due Date Last Done Comments Hepatitis A Vaccines (1 of 2 - Risk 2-dose series) 1977 Zoster Vaccines (1 of 2) 1977 RSV Immunization Adult Patients (1 - Risk 60-74 years 1-dose series) 2018 Colorectal Cancer Screening: Colonoscopy 03/19/2022 Lung Cancer Screening (Low Dose CT) 03/19/2022 Osteoporosis Screening (Bone Density Screening) 03/19/2022 Social Influencers of Health Screening 03/19/2022 Falls Risk Assessment 2023 Depression Screening 04/20/2024 Hypertension/CHF/CAD Annual BMP Blood Test 11/25/2024 COVID-19 Vaccine (4 - 2024-2 6 season) 2024 07/01/2023, 10/25/2020, 09/25/2020 Influenza Vaccine (#1) 2024 , 06/11/2020, 05/20/2019 Breast Cancer Screening 11/25/2026 11/26/19, 07/17/2023 Cholesterol Screening (Lipid Panel) 10/16/2028 10/17/2023 DTaP,Tdap,and Td Vaccines (2 - Td or Tdap) 05/20/2029 05/20/2019 Pneumococcal Vaccine: 50+ Years Completed 11/11/2022, 05/20/2019 Hepatitis C Screening Completed 10/17/2023 HIB Vaccines Aged Out No longer eligi [...] to complete this topic RSV Immunization Patients Under 20 months Aged Out No longer eligible b ased on patient's age to complete this topic Varicella Vaccines Aged Out No longer eligible based on patient's age to complete this topic Procedures Procedure Name Priority Date/Time Associated Diagnosis Comments VAS US DUPLEX LOWER EXT VENOUS INSUFFICIENCY BILATERAL STAT 11/30/2024 9:04 AM EDT Swelling of lower extremity MG MAMMO DIGITAL DIAGNOSTIC W GIRMA BILAT Routine 11/25/2024 9:20 AM EDT Unspecified lump in unspecified breast from Last 3 Months Results * Vascular US duplex lower extremity venous insufficiency bilateral (11/30/2024 9:04 AM EDT) Left GSK tavo 0.21 cm CV VAS LAB Left GSDC tavo 0.14 cm CV VAS LAB Left GSMT tavo 0.27 cm CV VAS LAB Left GSPC tavo 0.20 cm CV VAS LAB Left GSPT tavo 0.28 cm CV VAS LAB Left SFJ Diameter 0.44 cm CV VAS LAB Left SSMC tavo 0.20 cm CV VAS LAB Left SSPC tavo 0.29 cm CV VAS LAB Right GSK tavo 0.33 cm CV VAS LAB Right GSDC tavo 0.18 cm CV VAS LAB Right GSMT tavo 0.25 cm CV VAS LAB Right GSPC tavo 0.20 cm CV VAS LAB Right GSPT tavo 0.30 cm CV VAS LAB Right SFJ Diameter 0.41 cm CV VAS LAB Right SSMC tavo 0.13 cm CV VAS LAB Right SSPC tavo 0.14 cm CV VAS LAB Anatomical Region Laterality Modality Vascular, Abdomen Ultrasound Narrative 12/02/2024 1:38 PM EDT 1. Technically difficult study. 2. There is no evidence of a DVT in the right or left lower extremity. 3. There is no clinically significant reflux noted in the right or left lower extremity venous system Right Lower Venous No evidence of deep vein thrombosis in the common femoral, deep femoral, proximal femoral, mid femoral, distal femoral, popliteal, greater saphenous, small saphenous, posterior tibial, anterior tibial, and peroneal veins of the right leg. The vessels showed compressibility. Interrogation showed phasic and spontaneous Doppler signals. No evidence of deep vein thrombosis in the gastrocnemius vein of the right leg. The vessel showed compressibility. Right Venous Insufficiency Duplex The exam was performed with the patient in reverse Trendelenburg. Left Lower Venous No evidence of deep vein thrombosis in the common femoral, deep femoral, proximal femoral, mid femoral, distal femoral, popliteal, greater saphenous, small saphenous, posterior tibial, anterior tibial, and peroneal veins of the left leg. The vessels showed compressibility. Interrogation showed phasic and spontaneous Doppler signals. No evidence of deep vein thrombosis in the gastrocnemius vein of the left leg. The vessel showed compressibility. Left Venous Insufficiency Duplex The exam was performed with the patient in reverse trendelenburg. Fish Warden Details A garcia scale, color and doppler analysis ultrasound was performed. During the study longitudinal and transverse views were obtained. Pulsed wave doppler was performed. Overall the study quality was technically difficult. us Maia Wallace MD CV VASCULAR PROCE NAHID Final Result * MG Mammo Digital Diagnostic w Girma bilat (11/25/2024 9:20 AM EDT) Anatomical Region Laterality Modality Breast Bilateral Mammography 11/25/2024 9:09 AM EDT Impressions 11/25/2024 9:17 AM EDT No mammographic evidence of malignancy. A negative mammogram in the presence of a clinically suspicious palpable abnormality does not preclude the possibility of malignancy or alter the indications for biopsy. PQRI CPT II 3342F Code 58937, 93799 PQRI 225 CPT II 7025F TISSUE DENSITY: The breasts are almost entirely fatty. (BI-RADS Category A) IMPRESSION: Benign. BI-RADS CATEGORY: 2 - BENIGN RECOMMENDATION: Screening bilateral mammogram is recommended in 1 year. Mammo Location: [facility], [address] [place] [address] -------- FINAL REPORT -------- Dictated By: Zana Rene Dictated Date: 11/25/2024 09:09 ET Assigned Physician: Zana Rene Reviewed and Electronically Signed By: Zana Rene Signed Date: 11/25/2024 09:17 ET Workstation ID: [id number] Transcribed By: Self Edit Transcribed Date: 11/25/2024 09:09 ET Narrative 11/25/2024 9:17 AM EDT CLINICAL: The patient is a 64 years Female . Screening mammography performed 07/13/2023 demonstrated an asymmetry abutting the skin in the lower inner quadrant of the left breast, as well as an asymmetry in the retroareolar region. Supplementary imaging performed 07/23/2023 demonstrated a stasis mid of the retroareolar asymmetry. The asymmetry abutting the skin in the lower inner quadrant was seen on ultrasound examination to represent a sebaceous cyst. The patient now presents for follow-up mammography of left breast and for annual mammography of the right breast. COMPARISON: 07/23/2023 and 07/13/2023. TECHNIQUE: Full-field digital mammography of the breasts bilaterally consisting of tomosynthesis in MLO and CC projection is performed in the [employer] 2000-D unit. Computer aided detection utilizing the iCAD system was utilized. FINDINGS: The breasts are again seen to be largely fatty replaced. The asymmetries anteriorly in the left breast are less prominent than on prior studies. There is no suspicious cluster of microcalcifications, suspicious mass, or area of architectural distortion. There is no skin thickening or nipple retraction. Procedure Note Zana Rene MD - 11/25/2024 CLINICAL: The patient is a 64 years Female . Screening mammographyperformed 07/13/2023 demonstrated an asymmetry abutting the skin in thelower inner quadrant of the left breast, as well as an asymmetry in theretroareolar region. Supplementary imaging performed 07/23/2023emonstrated a stasis mid of the retroareolar asymmetry. The asymmetryabutting the skin in the lower inner quadrant was seen on ultrasoundexamination to represent a sebaceous cyst. The patient now presents forfollow-up mammography of left breast and for annual mammography of theright breast. COMPARISON: 07/23/2023 and 07/13/2023. TECHNIQUE: Full-field digital mammography of the breasts bilaterallyconsisting of tomosynthesis in MLO and CC projection is performed in the[employer] 2000-D unit. Computer aided detection utilizing the iCADsystem was utilized. FINDINGS: The breasts are again seen to be largely fatty replaced. Theasymmetries anteriorly in the left breast are less prominent than on priorstudies. There is no suspicious cluster of microcalcifications,suspicious mass, or area of architectural distortion. There is no skinthickening or nipple retraction. IMPRESSION: No mammographic evidence of malignancy. A negative mammogram in the presence of a clinically suspicious palpableabnormality does not preclude the possibility of malignancy or alter theindications for biopsy. PQRI CPT II 3342F Code 21269, 05027 PQRI 225 CPT II 7025F TISSUE DENSITY: The breasts are almost entirely fatty. (BI-RADS CategoryA) IMPRESSION: Benign. BI-RADS CATEGORY: 2 - BENIGN RECOMMENDATION: Screening bilateral mammogram is recommended in 1 year. Mammo Location: [facility], [address] [place] [address] -------- FINAL REPORT -------- Dictated By: Zana Rene Dictated Date: 11/25/2024 09:09 ET Assigned Physician: Zana Rene Reviewed and Electronically Signed By: Zana Rene Signed Date: 11/25/2024 09:17 ET Workstation ID: [id number] Transcribed By: Self Edit Transcribed Date: 11/25/2024 09:09 ET Edwin Stover IMG BI PROCEDURES Fin al Result from Last 3 Months Insurance [facility] Member Subscriber Plan / Payer (Ef fective 2023-Present) Name:Maia Roach Relation to Subscriber:Self Name:Maia Roach Payer ID:[id number] Group ID:[id number] Type:Not on file Address: [place] [address] [address] [phone] Care Teams Tuft Machine Operator Relationship Specialty Start Date End Date Edwin Phillips [address] [place] [address] PCP - General Internal Medicine 11/25/24
== END 2024-12-26 15:03 | disposition home or self-care (01) ==
LOC: HO.HOS 14:26
PROVIDERS: Visit Provider Orthopaedic Surgery
DX: M17.0 Bilateral primary osteoarthritis of knee (principal); M16.11 Unilateral primary osteoarthritis, right hip
CPT/HCPCS: 99203

== ENCOUNTER → 2024-12-26 14:25 | Outpatient (BNVA) | payer OTHER, SELFPAY | PROVIDERS: Visit Provider Orthopaedic Surgery | DX: M17.0 Bilateral primary osteoarthritis of knee (principal) | CPT/HCPCS: 99202 ==

== ENCOUNTER 2025-01-13 13:10 | Outpatient (REF) | payer OTHER, SELFPAY ==
[2025-01-13 14:01] LABS: Hematocrit 38.4 % (37.0-47.0); Hemoglobin 13.1 g/dl (12.0-16.0); Mean Corpuscular HGB Conc 34.1 g/dl (31.0-35.0); Mean Corpuscular Hemoglobin 30.6 pg (27.0-33.0); Mean Corpuscular Volume 89.7 fL (80.0-98.0); NRBC Abs Auto 0.000 X10*3/uL (0.0-0.012); NRBC Pct Auto 0.0 /100WBC (0.0-0.2); Platelet Count 211 X10*3/uL (160-400); Red Blood Count 4.28 X10*6/uL (4.20-5.50); White Blood Count 3.3 X10*3/uL (4.8-10.8)
[2025-01-13 14:07] LABS: Total Hemoglobin (HGBA1C) 3347.6136 umol/L
--- OUTSIDE RECORDS SUMMARY | 2025-01-13 14:31 | XMS_ITS | Clinical Summary ---
Author Organization [facility] Address [address] [place] [address] Phone Care Team Providers Care Physician Relations Representative Name Role Phone Edwin Phillips Primary Care Provide r Encounters Date Type Department Care Team Description 11/30/2024 8:30 AM EDT Ancillary Procedure [facility] [address] [place] [address] Swelling of lower extremity 11/25/2024 8:50 AM EDT - 11/25/2024 11:59 PM EDT [facility] [address] [phone] Unspecified lump in unspecified breast Discharge Disposition: [...] PM EDT Obstetrics History Plan of Treatment Upcoming Encounters Date Type Department Care Team (Late st Contact Info) Description 02/21/2025 9:00 AM EST Appointment [facility] Density [address] [place] [phone] 02/21/2025 10:00 AM EST [facility]ointment [facility] [address] [place] [phone] Health Maintenance Due Date Last Done Comments Hepatitis A Vaccines (1 of 2 - Risk 2-dose series) 1977 Zoster Vaccines (1 of 2) 1977 RSV Immunization Adult Patients (1 - Risk 60-74 years 1-dose series) 2018 Colorectal Cancer Screening: Colonoscopy 03/19/2022 Lung Cancer Screening (Low Dose CT) 03/19/2022 Medicare Annual Wellness Visit 03/19/2022 Osteoporosis Screening (Bone Density Screening) 03/19/2022 [...] performed with the patient in reverse trendelenburg. [place] [employer] Neck Whipper Details A garcia scale, color and doppler analysis ultrasound was performed. During the study longitudinal and transverse views were obtained. Pulsed wave doppler was performed. Overall the study quality was technically difficult. us Roxi Wallace MD CV VASCULAR PROCE NAHID Final [...] for biopsy. PQRI CPT II 3342F Code 79224, 79664 PQRI 225 CPT II 7025F TISSUE DENSITY: The breasts are almost entirely fatty. (BI-RADS Category A) IMPRESSION: Benign. BI-RADS CATEGORY: 2 - BENIGN RECOMMENDATION: Screening bilateral mammogram is recommended in 1 year. Mammo Location: [facility], [address] [place] [address] -------- FINAL REPORT -------- Dictated By: Zana Rene Dictated Date: 11/25/2024 09:09 ET Assigned Physician: Zana Rene Reviewed and Electronically Signed By: Zana Rene Signed Date: 11/25/2024 09:17 ET Workstation ID: [id number] Transcribed By: Self Edit Transcribed Date: 11/25/2024 [...] and CC projection is performed in the [employer] 2000-D unit. Computer aided detection utilizing the [employer] system was utilized. FINDINGS: The breasts are [...] asymmetry in theretroareolar region. Supplementary imaging performed 4demonstrated a stasis mid of the retroareolar asymmetry. The asymmetryabutting the skin in the lower inner quadrant was seen on ultrasoundexamination to represent a sebaceous cyst. The patient now presents forfollow-up mammography of left breast and for annual mammography of theright breast. COMPARISON: 07/23/2023 and 07/13/2023. TECHNIQUE: Full-field digital mammography of the breasts bilaterallyconsisting of tomosynthesis in MLO and CC projection is performed in the[employer] 2000-D unit. Computer aided detection utilizing the [...] for biopsy. PQRI CPT II 3342F Code 35321, 94419 PQRI 225 CPT II 7025F TISSUE DENSITY: The breasts are almost entirely fatty. (BI-RADS CategoryA) IMPRESSION: Benign. BI-RADS CATEGORY: 2 - BENIGN RECOMMENDATION: Screening bilateral mammogram is recommended in 1 year. Mammo Location: [facility], [address] [place] [address] -------- FINAL REPORT -------- Dictated By: Zana Rene Dictated Date: 11/25/2024 09:09 ET Assigned Physician: Zana Rene Reviewed and Electronically Signed By: Zana Rene Signed Date: 11/25/2024 09:17 ET Workstation ID: [id number] Transcribed By: Self Edit Transcribed Date: 11/25/2024 09:09 ET Edwin Stover IMG BI PROCEDURES Fin al Result from Last 3 Months Insurance [facility] [facility] [facility] MEDICARE Member Subscriber Plan / Payer (Ef fective 2023-Present) Name:Roxi Roach Relation to Subscriber:Self Name:oRxi Roach Payer ID:[id number] Group ID:[id number] Type:Not on file Address: [facility] [address] [id number] MEDICAID - [place] Care Teams Physician Relations Representative Relationship Specialty Start Date End Date Edwin Phillips [address] [place], [place] PCP - General Internal Medicine 11/25/24
--- OUTSIDE RECORDS SUMMARY | 2025-01-13 14:31 | XMS_ITS | Encounter Summary ---
Author Organization [employer] Address [address] [facility] 7t [place] [address] Care Team Providers Care Bulking Machine Operator Name Role Phone Pat Walker MAGISTERIAL DISTRICT JUDGE Primary Care Provider Maia Figueroa MD Primary Care Pro vider Reason for Visit * Reason Comments Med Change Request Encounter Details Date Type Department Care Team (Late st Contact Info) Description 06/26/2022 Refill [facility] [address] [place] [address] Pat Walker FNP Elevated BP without diagnosis [...] hopeless Nearly every day 06/26/2022 2:54 PM Juana Cruz MA Patient Health Questionnaire-2 Score 6 [...] Description 01/19/2025 2:45 PM EDT Office Visit [address] [address] Maia Yarbrough MD [address] [place] [address] documented as of this encounter Visit Diagnoses Diagnosis Elevated BP without diagnosis of hypertension documented in this encounter Additional Health Concerns Assessment Noted Time PHQ-9 Depression Total Score: 14 023 2:54 PM EST documented as of this encounter Care Teams Bulking Machine Operator Relationship Specialty Start Date End Date Pat Walker FNP PCP - General Family Medicine 03/19/22 11/27/22 Maia Yarbrough MD [address] [place] [address] PCP - General Internal Medicine 11/28/22 documented as of this encounter
--- OUTSIDE RECORDS SUMMARY | 2025-01-13 14:31 | XMS_ITS | Encounter Summary ---
Author Organization [employer] Address [address] [facility] 7t [place] [address] Care Team Providers Care Surveillance Officer Name Role Phone Maia Yarbrough MD Primary Care Pro vider Reason for Visit * Reason Comments Pre-visit Planning SDOH unable to reach LVM Encounter Details Date Type Department Care Team (Late st Contact Info) Description 01/12/2025 Patient Outreach [facility] [address] [place] [address] Maia Yarbrough MD [address] [place] [address] Pre-visit Planning (SDOH unable to reach LVM ) Social History Tobacco Use Types Packs/Day Years Used Date Smoking Tobacco: Every Day Cigarettes 1 53 Smokeless Tobacco: Never Comments:Started smoking 9 y of age ,never [...] the past 12 months, has t he [employer], gas, oil or water [employer] threatened to shut off services in your [...] AM EDT documented as of this encounter Progress Notes * Cyndi Aldana - 01/12/2025 11:56 AM EDT ISAIAH Wright placed outbound call to patient to complete pre-visit planning. No answer at this time. Patient name and were not confirmed. CC left voicemail requesting return call. Direct contactinformation provided. documented in this encounter Plan of Treatment Upcoming Encounters Date Type Department Care Team (Late st Contact Info) Description 01/19/2025 2:45 PM EDT Office Visit [facility] [address] [place] [address] Maia Yarbrough MD [address] [place] [address] documented as of this encounter Visit Diagnoses Not on filedocumented in this encounter Additional Health Concerns Assessment Noted Time PHQ-9 Depression Total Score: 16 024 11:46 AM EDT documented as of this encounter Care Teams Surveillance Officer Relationship Specialty Start Date End Date Maia Yarbrough MD [address] [place] [address] PCP - General Internal Medicine 11/28/22 documented as of this encounter
--- OUTSIDE RECORDS SUMMARY | 2025-01-13 14:31 | XMS_ITS | Encounter Summary ---
Author Organization [employer] Address [address] [place] [address] [address] [place] [address] Care Team Providers Care Physiologist Name Role Phone Pat Walker Primary Care Provider Maia Figueroa MD Primary Care Pro vider Encounter Details Date Type Department Care Team (Late st Contact Info) Description 03/29/2022 Abstract [facility] [address] [place] [phone] Provider, MD Fernanda Social History Tobacco Use [...] Description 01/19/2025 2:45 PM EDT Office Visit [facility] [address] [place] [phone] Maia Yarbrough MD [address] [place] [address] documented as of this encounter Visit Diagnoses Not on filedocumented in this encounter Care Teams Physiologist Relationship Specialty Start Date End Date Pat Walker FNP PCP - General Family Medicine 03/19/22 11/27/22 Maia Yarbrough MD [address] [place] [phone] PCP - General Internal Medicine 11/28/22 documented as of this encounter
--- OUTSIDE RECORDS SUMMARY | 2025-01-13 14:31 | XMS_ITS | Clinical Summary ---
Author Organization [employer] Address [address] [facility] 7t [place] [address] Care Team Providers Care Web Ui Software Engineer Name Role Phone Maia Yarbrough MD Primary [...] 90 tablet 5 11/22/19 26 Active Umeclidinium B[place] 62.5 MCG/ACT aerosol powder Inhale 1 Act [...] Pt is currently engaged in services with [facility]. However, pt is not satisfied with [...] Encounters Date Type Department Care Team Description 01/12/2025 Patient Outreach [facility] [address] [place] [address] Maia Yarbrough MD Pre-visit Planning ([facility] unable to reach [facility] ) 12/08/2024 Telephone [facility] [address] [place], [place] [phone] Maia Yarbrough MD Request For Order(s) 11/22/2024 Telephone [facility] [address], [place] [phone] Olivia, Glenda Mammo appointment reminder 11/22/2024 Results Follow-Up [address] [address] Maia Yarbrough MD XR Hip 2 or 3 Views Left 11/21/2024 1:00 PM EDT Office Visit [address] [address] Maia Yarbrough MD Colon cancer screening (Primary [...] Leukopenia, unspecified type 11/21/2024 Travel 11/18/[address] [address] Maia Yarbrough MD chartprep 11/11/2024 Patient Outreach [address] [address] Maia Yarbrough MD Pre-visit Planning (Pre-visit planning - [facility]VM ) 11/02/2024 Orders Only [facility] [address] [place], [place] [phone] Edwin Phillips MD Mass of left breast, [...] with others, in a hotel, in a jail, living outside on the street, on a [...] the past 12 months, has t he [employer], gas, oil or water company threatened to [...] Description 01/19/2025 2:45 PM EDT Office Visit [facility] [address] [place] [phone] Maia Yarbrough MD [address] [place], [place] [phone] Health Maintenance Due Date Last Done Comments [...] Procedure Name Priority Date/Time Associated Diagnosis Comments HEMOGLOBIN A1C Routine 01/13/2025 1:34 PM EDT Health care directive on file CBC Routine 01/13/2025 1:34 PM EDT Health care directive on file XR HIP 2 OR 3 VIEWS LEFT [...] Recently Relevant to Health Maintenance Results * (ABNORMAL) CBC (01/13/2025 1:34 PM EDT) White Blood Count 3.3(L) 4.8 - 10.8 X10*3/uL [facility] Red Blood Count 4.28 4.20 - 5.50 X10*6/uL [facility] Hemoglobin 13.1 12.0 - 16.0 g/dl [facility] Hematocrit 38.4 37.0 - 47.0 % [facility] Mean Corpuscular Volume 89.7 80.0 - 98.0 fL [facility] Mean Corpuscular Hemoglobin 30.6 27.0 - 33.0 pg [facility] Mean Corpuscular HGB Conc 34.1 31.0 - 35.0 g/dl [facility] Red Cell Distribution Width 11.9 11.0 - 16.0 % [facility] Platelet Count 211 160 - 400 X10*3/uL [facility] Mean Platelet Volume 9.8 9.4 - 12.3 fL [facility] NRBC Pct Auto 0.0 0.0 - 0.2 /100WBC [facility] NRBC Abs Auto 0.000 0.0 - 0.012 X10*3/uL [facility] Blood Venous blood specimen / Unknown 01/13/2025 1:34 PM EDT 01/13/2025 1:34 PM EDT us Maia Wallace MD LAB BLOOD ORDERAB LES Final Result [facility] [address] [place] [phone] [phone] * Hemoglobin A1c (01/13/2025 1:34 PM EDT) Hemoglobin A1c 5.2 <6.0 % [facility] Comment:Hemoglobin A1C Refer ence Range Adults: 4.8 - 6.0 % Non diabetic: < 6.0 % Goal: < 7.0 %Additional Action Suggested: > 8.0 %Note: Hemoglobin A1c results are invalid for patients with abnormal amounts of HbF. Blood transfusions may impact the HbA1c concentration in the patient sample. Estimated Average Glucose 103 mg/dL [facility] Comment:eAG = Estimated ave rage glucose which is %A1C expressed asaverage glucose, using the formula of the P7Z-YmawngpKrcbpho Glucose study (ADAG), Diabetes Care, Vol.31,#8,2007 Blood Venous blood specimen / Unknown 01/13/2025 1:34 PM EDT 01/13/2025 1:34 PM EDT us Maia Wallace MD LAB BLOOD ORDERAB LES Final Result [facility] [address] [place] [phone] * XR Hip 2 or 3 Views Left (11/21/2024 4:15 PM EDT) Anatomical Region Laterality Modality Lower Extremities, Hip Left Radiograp hic Imaging 11/21/2024 4:15 PM EDT Narrative 11/21/2024 4:43 PM EDT [facility] [address] [place] [address] XRay Report Signed Patient: Maia Roach MR#: [id number] : 1960 Acct:[id number] Age/Sex: 64 / F ADM Date: 11/21/24 [facility] Att[facility] Dr: Maia Wallace MD Ordering Physician: Maia Yarbrough MD Date of Service: 11/21/24 Procedure(s): XR hip LT min 2V Accession Number(s): [id number] cc: Maia Yarbrough MD EXAMINATION: XR HIP, [...] Marcelino Root MD 11/21/2024 04:40 PM EDT RP Dictated By: Marcelino Root MD Signed By: <Electronically signed by Marcelino Root MD in OV> 11/21/24 1640 DD/ 1615 TD/TT: 11/21/24 1616 Aspnet Developer: Procedure Note Donotuseinterpreter, Image - 11/21/[address] [address] XRay Report Signed Patient: Bennie Roach#: [id number] : 8Acct:[id number] Age/Sex: 64 / FADM Date: 11/21/24 Loc: HO.[facility] Attending Dr: Maia Wallace MD Ordering Physician: Maia Yarbrough MD Date of Service: 11/21/24 Procedure(s): XR hip LT min 2V Accession Number(s): [id number] cc: Maia Yarbrough MD EXAMINATION: XR HIP, [...] 11/21/24 1640 DD/ 1615 TD/TT: 11/21/24 1616 Aspnet Developer: Maia Wallace MD IMG XR PROCEDURES Final Result * XR Knee 1-2 Views Bilateral (11/21/2024 1:44 PM EDT) Anatomical Region Laterality Modality Lower Extremities, Knee Bilateral [facility] 11/21/2024 1:44 PM EDT Narrative 11/21/2024 4:40 [place] [address] XRay Report Signed Patient: Maia Roach MR#: [id number] : 1960 Acct:[id number] Age/Sex: 64 / F ADM Date: 11/21/24 Loc: .[facility] Attending Dr: Maia Wallace MD Ordering Physician: Maia Yarbrough MD Date of Service: 11/21/24 Procedure(s): XR Knee Hai 1or 2V Accession Number(s): [id number] cc: Maia Yarbrough MD Exam: X-ray, bilateral [...] joint space narrowing similar to the prior. Yhgo-of-qisqdfcr tricompartmental marginal ossified is present. There is [...] Marcelino Root MD 11/21/2024 04:38 PM EDT RP Dictated By: Marcelino Root MD Signed By: <Electronically signed by Marcelino Root MD in OV> 11/21/24 1638 DD/ 1344 TD/TT: 11/21/24 1400 Aspnet Developer: Procedure Note Donotuseinterpreter, Image - 11/21/[address] [address] XRay Report Signed Patient: Maia RoachMR#: [id number] : 8Acct:[id number] Age/Sex: 64 / FADM Date: 11/21/24 Loc: HO.[facility] Attending Dr: Maia Wallace MD Ordering Physician: Maia Yarbrough MD Date of Service: 11/21/24 Procedure(s): XR Knee Hai 1or 2V Accession Number(s): [id number] cc: Maia Yarbrough MD Exam: X-ray, bilateral [...] joint space narrowing similar to the prior. Mubz-im-aabxclxk tricompartmental marginal ossified is present. There is [...] Marcelino Root MD 11/21/2024 04:38 PM EDT RP Dictated By: Marcelino Root MD Signed By: <Electronically signed by Marcelino Root MD in OV> 11/21/24 1638 DD/ 1344 TD/TT: 11/21/24 1400 Aspnet Developer: Maia Wallace MD IMG XR PROCEDURES Final Result * Hepatitis C Antibody with Reflex to HCV, RNA, Quantitative, Real-Time PCR (10/17/2023 9:02 AM EDT) Hepatitis C Antibody GRAYZONE Nonreactive [facility] Comment:Antibodies to HCV ma y or may not be present. Suggest repeatanti-HCV in 4-6 weeks and/or HCV viral load if clinicallyindicated. Blood Venous blood specimen / Unknown 10/17/2023 9:02 AM EDT 10/17/2023 9:14 AM EDT us Maia Wallace MD LAB BLOOD ORDERAB LES Final Result [facility] [address] [place], [place] [phone] * (ABNORMAL) Lipid Panel, Standard (10/17/2023 9:02 AM EDT) Triglycerides 119 <150 mg/dL [facility] Comment:Desirable Triglyceri de: less than 150 mg/dLBorderline High Triglyceride 150-199 mg/dLHigh Triglyceride: 200-499 mg/dLVery High Triglyceride: greater than or equal to 5OO mg/dL Cholesterol 185 <200 mg/dL [facility] Comment:Desirable Cholestero l: less than 200 mg/dLBorderline High Cholesterol: 200-239 mg/dLHigh Cholesterol: greater than 239 mg/dL LDL Cholesterol Calculated 111(H) <100 mg/dL [facility] Comment:Desirable LDL: less than 100 mg/dLNear Optimal/Above Optimal LDL: 110- 129 mg/dLBorderline High LDL: 130-159 mg/dLHigh LDL: 160-189 mg/dLVery High LDL: greater than or equal to 190 mg/dL HDL Cholesterol 51 >40 mg/dL [facility] Comment:Desirable HDL: great er than 40 mg/dL Note: This HDL assay may give artificially low results in patients with liver disease. Blood Venous blood specimen / Unknown 10/17/2023 9:02 AM EDT 10/17/2023 9:14 AM EDT Maia Wallace MD LAB BLOOD ORDERAB LES Final Result [facility] [address] [place] [address] [phone] * THINPREP PAP (06/11/2020 12:00 AM [...] along with historic and current clinical information. Room Manager: SEE COMMENT [facility] Comment: ALS, CT(ASCP) CT screening location: [address] [address] Interpretation/Res ult: SEE COMMENT [facility] Comment: Negative for intraepithelial lesion or malignancy. Atrophic pattern; predominantly parabasal cells LMP: NONE [facility] Prev. BX: NONE [facility] Prev. PAP: NONE [facility] Review Room Manager: SEE COMMENT [facility] Comment: BLC,CT(ASCP) CT screening location: [place] [address] SOURCE: None given [facility] Statement Of Adequacy: SATISFACTORY FOR EVALUATION [facility] 06/11/2020 Rajendra Kimball MD LAB PATHOLOGY ORDERABLES Fin al Result Performing Organization Address City/[facility] Co de Phone Number [facility] [address] * HPV GENOTYPES 16,18/45 (06/11/2020 12:00 AM EST) HPV 16 RNA NOT DETECTED NOT DETECTED [facility] HPV 18/45 RNA NOT DETECTED NOT DETECTED [facility] Comment: Methodology: Cash Shortage Investigator Mediated Amplification The analytical performance characteristics of this assay have been determined by [employer]. The modifications have not been cleared or approved by the FDA. This assay has been validated pursuant to the CLIA regulations and is used for clinical purposes. 06/11/2020 Rajendra Kimball MD LAB CYTOLOGY ORDERABLES Christy l Result Performing Organization Address [facility] de Phone Number [facility] [address] from Last 3 Months or Most Recently Relevant to Health Maintenance Insurance [facility] LONG-TERM OPTIONS (HMO D-SNP) DONI ANDINO [id number] Care Teams Web Ui Software Engineer Relationship Specialty Start Date End Date Maia Yarbrough MD [address] [place] [phone] PCP - General Internal Medicine 11/28/22
[2025-01-13 15:22] LABS: Alanine Aminotransferase 12 U/L (0-31); Albumin Level 4.0 g/dL (3.5-5.0); Alkaline Phosphatase 51 U/L (39-117); Anion Gap 10 (12-20); Aspartate Amino Transferase 23 U/L (5-31); Blood Urea Nitrogen 21 mg/dL (9-16); Calcium 9.3 mg/dL (8.4-10.2); Carbon Dioxide 26 mmol/L (22-29); Chloride 109 mmol/L (96-108); Cholesterol 192 mg/dL (<200); Estimated Glomerular Filt Rate > 60; HDL Cholesterol 59 mg/dL (>40); Potassium 4.2 mmol/L (3.3-5.1); Sodium 141 mmol/L (135-145); Total Protein 6.5 g/dL (6.5-8.0); Triglycerides 70 mg/dL (<150)
[2025-01-13 15:40] LABS: Folate 13.5 ng/mL (> or = 4.0); Vitamin B12 359 pg/mL (200-900)
[2025-01-16 04:01] LABS: Syphilis Screen Nonreactive (Nonreactive)
[2025-01-16 05:02] LABS: HBS Num1 3.81 mIU/mL (0-7.99); HBc Num1 0.05 S/CO (0.00-0.79); HBsAGNum1 0.29 S/CO (0.00-0.99); HIV Num 1 0.04 S/CO (0.00-0.99); Hepatitis B Surface Antigen Negative (Negative); ~HepC Num1 0.78 S/CO (0.00-0.79); ~Hepatitis B Surface Antibody NONREACTIVE (Nonreactive); ~Hepatitis C Antibody Nonreactive (Nonreactive)
== END 2025-01-13 13:11 | disposition home or self-care (01) ==
LOC: HO.LAB 13:10
PROVIDERS: PCP Student in an Organized Health Care Education/Training Program; Visit Provider Student in an Organized Health Care Education/Training Program
DX: Z13.29 Encounter for screening for other suspected endocrine disorder (principal); Z13.1 Encounter for screening for diabetes mellitus; Z13.6 Encounter for screening for cardiovascular disorders; Z11.4 Encounter for screening for human immunodeficiency virus [HIV]; Z78.9 Other specified health status
CPT/HCPCS: 80053; 80061; 82306; 82607; 82746; 83036; 84443; 85027; 86704; 86706; 86780; 86803; 87340; 87389

== ENCOUNTER 2025-01-17 09:47 | Outpatient (REF) | payer OTHER, SELFPAY ==
--- OUTSIDE RECORDS SUMMARY | 2025-01-17 10:38 | XMS_ITS | Encounter Summary ---
Author Organization [employer] Address [address] [place] [address] 7 [place] [address] Care Team Providers Care Health Evaluator Name Role Phone Maia Yarbrough MD Primary Care Pro vider Reason for Visit * Reason Onset Date Comments Results 11/22/2024 Encounter Details Date Type Department Care Team (Latest Contact Info) Description 11/22/2024 Results Follow-Up [facility] MEDICINE [address] [place] [phone] Maia Yarbrough MD [address] [place] [address] XR Hip 2 or 3 Views Left, CBC, Comprehensive Metabolic Panel, Additional followed-up results: 2 Social History Tobacco Use Types Packs/Day Years [...] with others, in a hotel, in a mcc, living outside on the street, on a [...] AM EDT documented as of this encounter Miscellaneous Notes * Result Encounter Note - Maia Wallace MD - 01/13/2025 3:25 PM EDT Please call patient to advise to come to already scheduled apt with me to go over abnormal labs Thanks * Telephone Encounter - Tessa Payan RN - 11/23/2024 8:45 AM EDT Telephone call x3 to pt to advise of below result. No answer, left voicemail to call back. [facility]. Mailed letter to address on file, pt to contact clinic PRN. * Telephone Encounter - Tessa Payan RN - 11/22/2024 2:55 PM EDT Telephone call x2 to pt to advise of below result. No answer, left voicemail to call back. Will task for third attempt. * Telephone Encounter - Tessa Payan RN - 11/22/2024 8:55 AM EDT Telephone call x1 to pt to advise of below result. No answer, left voicemail to call back. * Telephone Encounter - Tessa Payan RN - 11/22/2024 8:54 AM EDT ----- Message from Maia Wallace MD sent at 11/22/2024 4:16 AM EDT ----- Please inform pt in regards knee and hip XR reports -Bl knee XR : Right knee Stable mild to moderate osteoarthritis , Left knee: Stable mild to moderate osteoarthritis. Remote MCL partial tear near the adductor tubercle with associated calcification. -left hip XR There is lucency along the proximal femoral stem, probably insufficient to result in gross hardware loosening. Given above findings and pain where had previous hip surgery I am referring back to orthopedic for knees and hip pain Also referred to PT today for her knees Thanks ----- Message ----- From: Interface, Ris Results In Sent: 11/21/2024 4:44 PM EDT To: Maia Wallace MD * Result Encounter Note - Maia Wallace MD - 11/22/2024 4:16 AM EDT Please inform pt in regards knee and hip XR reports -Bl knee XR : Right knee Stable mild to moderate osteoarthritis , Left knee: Stable mild to moderate osteoarthritis. Remote MCL partial tear near the adductor tubercle with associated calcification. -left hip XR There is lucency along the proximal femoral stem, probably insufficient to result in gross hardware loosening. Given above findings and pain where had previous hip surgery I am referring back to orthopedic for knees and hip pain Also referred to PT today for her knees Thanks documented in this encounter Plan of Treatment Upcoming Encounters Date Type Department Care Team (Late st Contact Info) Description 01/19/2025 2:45 PM EDT Office Visit [facility] [address] [place] [phone] Maia Yarbrough MD [address] [place] [phone] documented as of this encounter Visit Diagnoses Not on filedocumented in this encounter Additional Health Concerns Assessment Noted Time PHQ-9 Depression Total Score: 16 024 11:46 AM EDT documented as of this encounter Care Teams Health Evaluator Relationship Specialty Start Date End Date Maia Yarbrough MD [address] [place] [phone] PCP - General Internal Medicine 11/28/22 documented as of this encounter
--- OUTSIDE RECORDS SUMMARY | 2025-01-17 10:38 | XMS_ITS | Encounter Summary ---
Author Organization [employer] Address [address] [facility] 7t [place] [address] Care Team Providers Care Chief Operator Hydroformer Name Role Phone Pat Walker FACULTY DEAN Primary Care Provider Maia Figueroa MD Primary Care Pro vider Reason for Visit * Reason Comments Med Change Request Encounter Details Date Type Department Care Team (Late st Contact Info) Description 06/26/2022 Refill [facility] [address] [place] [address] Pat Walker FNP Elevated BP without diagnosis [...] Description 01/19/2025 2:45 PM EDT Office Visit [address] [address] Maia Yarbrough MD [address] [place] [address] documented as of this encounter Visit Diagnoses Diagnosis Elevated BP without diagnosis of hypertension documented in this encounter Additional Health Concerns Assessment Noted Time PHQ-9 Depression Total Score: 14 023 2:54 PM EST documented as of this encounter Care Teams Chief Operator Hydroformer Relationship Specialty Start Date End Date Pat Walker FNP PCP - General Family Medicine 03/19/22 11/27/22 Maia Yarbrough MD [address] [place] [address] PCP - General Internal Medicine 11/28/22 documented as of this encounter
--- OUTSIDE RECORDS SUMMARY | 2025-01-17 10:38 | XMS_ITS | Clinical Summary ---
Author Organization [employer] Address [address] [facility] 7t [place] [address] Care Team Providers Care Pulp Mill Team Leader Name Role Phone Maia Yarbrough MD Primary [...] 90 tablet 5 11/22/19 26 Active Umeclidinium [place] 62.5 MCG/ACT aerosol powder Inhale 1 Act [...] Pt is currently engaged in services with [facility]. However, pt is not satisfied with [...] Department Care Team Description 01/12/2025 Patient Outreach [facility] [address] [place] [address] Maia Yarbrough MD Pre-visit Planning ([facility] unable to reach [facility] ) 12/08/2024 Telephone [facility] [address] [place], [place] [phone] Maia Yarbrough MD Request For Order(s) 11/22/2024 Telephone [facility] [address] [place], [place] [phone] Olivia, Glenda Mammo appointment reminder 11/22/2024 Results Follow-Up [address] [address] Maia Yarbrough MD XR Hip 2 or 3 Views Left, CBC, Comprehensive Metabolic Panel, Additional followed-up results: 2 11/21/2024 1:00 PM EDT Office Visit [address] [address] Maia Yarbrough MD Colon cancer screening (Primary [...] Leukopenia, unspecified type 11/21/2024 Travel 11/18/[address] [address] Maia Yarbrough MD chartprep 11/11/2024 Patient Outreach [address] [address] Maia Yarbrough MD Pre-visit Planning (Pre-visit planning - LVM ) 11/02/2024 Orders Only [facility] [address] [place] [address] Edwin Phillips MD Mass of left breast, [...] with others, in a hotel, in a senior living, living outside on the street, on a [...] Description 01/19/2025 2:45 PM EDT Office Visit [facility] [address] [place], [place] [phone] Maia Yarbrough MD [address] [place], [place] [phone] Health Maintenance Due Date Last Done Comments CT Colonography 1960 Colonoscopy 1960 Colorectal Cancer Screening 1960 FIT DNA/Cologuard 1960 FIT 1960 FOBT 1960 Sigmoidoscopy 1960 Lung Cancer Screening 02/28/2008 RSV Patients and Patients Aged 60 years or older (1 - Risk 60-74 years 1-dose series) 2018 COVID-19 Vaccine (2 - Pfizer risk series) 07/22/2023 07/01/2023 Depression Monitoring 03/03/2024 09/01/2023, 024 Influenza Vaccine (#1) 2024 , 06/11/2020, 05/20/2019 Zoster Vaccines (2 of 2) 01/31/2025 12/06/2024 HPV/Cotest 06/11/2025 06/11/2020 Pap Smear 06/11/2025 06/11/2020 Alcohol/Substance Use Screening 11/21/2025 11/21/2024 SDOH Screening 11/21/2025 11/21/2024 Tobacco Screening 11/21/2025 11/21/2024 Mammogram 11/25/2026 11/25/2024, 08/11/2024, 07/23/2023 DTaP/Tdap/Td Vaccines (2 - Td or Tdap) 05/20/2029 05/20/2019 Lipid Panel 01/13/2030 01/13/2025, 09/19, 11/11/2022, Additional history exists Pneumococcal Vaccine: 50+ Years Completed 11/11/2022, 05/20/2019 Hepatitis C Screening Completed 01/13/2025 , 10/17/2023, 10/17/2023, Additional history exists HIB Vaccines Aged Out No longer eligi [...] Procedure Name Priority Date/Time Associated Diagnosis Comments VITAMIN D,25-OH,TOTAL,IA Routine 01/13/2025 1:34 PM EDT Health care directive on file VITAMIN B12/FOLATE, SERUM PANEL Routine 01/13/2025 1:34 PM EDT Health care directive on file TSH W/REFLEX TO FT4 Routine 01/13/2025 1 :34 PM EDT Health care directive on file SYPHILIS SCREEN Routine 01/13/2025 1:34 PM EDT Health care directive on file LIPID PANEL, STANDARD Routine 01/13/2025 1:34 PM EDT Health care directive on file HIV 1/2 ANTIGEN/ANTIBODY, FOURTH GENERATION W/RFL Routine 01/13/2025 1:34 PM EDT Health care directive on file HEPATITIS C AB W/REFL TO HCV RNA, QN, PCR Routine 01/13/2025 1:34 PM EDT Health care directive on file HEPATITIS B SURFACE ANTIGEN, EIA Routine 01/13/2025 1:34 PM EDT Health care directive on file HEPATITIS B SURFACE ANTIBODY, QUALITATIVE Routine 01/13/2025 1:34 PM EDT Health care directive on file HEPATITIS B CORE AB TOTAL Routine 01/13/2025 1:34 PM EDT Health care directive on file HEMOGLOBIN A1C Routine 01/13/2025 1:34 PM EDT Health care directive on file COMPREHENSIVE METABOLIC PANEL Routine 01/13/2025 1:34 PM EDT Health care directive on file CBC Routine 01/13/2025 1:34 PM EDT Health care directive on file XR HIP 2 OR 3 VIEWS LEFT Routine 11/21/2024 4:15 PM EDT Left hip pain XR KNEE 1-2 VIEWS BILATERAL Routine 11/21/2024 1:44 PM EDT Chronic pain of both knees HPV GENOTYPES 16,18/45 Routine 12:00 AM EST THINPREP PAP Routine 06/11/2020 12:00 AM EST from Last 3 Months or Most Recently Relevant to Health Maintenance Results * Syphilis Screen (01/13/2025 1:34 PM EDT) Syphilis Screen Nonreactive Nonreactive [facility] Blood 01/13/2025 1:34 PM EDT 01/13/2025 1:34 PM EDT us Maia Wallace MD LAB BLOOD ORDERAB LES Final Result Performing Organization Address City/[facility]/ZIP Co de Phone Number [facility] [address] [place] [address] [phone] * (ABNORMAL) Vitamin D, 25-Hydroxy, Total, Immunoassay (01/13/2025 1:34 PM EDT) Vitamin D 25-OH Total 25.2(L) >30 ng/mL [facility] Comment: Health Based Reference Values*< 20 ng/mL Duxogiznv49-04 ng/mL Insufficient> 30 ng/mL Sufficient*Leonidas PERALTA. N Engl J Med. 2007;357:266-280There is no well-established upper level of normal vitamin Dlevels. Some laboratories use 50 ng/mL as an upper limit ofnormal. However, toxicity is patient-dependent and may occurat any level. Careful correlation with the patient'spresentation is necessary and, if there is concern forvitamin D toxicity, treatment should be consideredirrespective of the serum level.Care must be taken in interpreting Vitamin D results fromdifferent laboratories and methodologies. Published datademonstrated that results from patients undergoinghemodialysis may show a negative bias when tested withvarious automated 25-OH vitamin D assays when compared toLC-MS/MS.When testing samples from patients whose predominant form ofVitamin D is Vitamin D2, such as patients receiving VitaminD2 supplementation, results that are subtherapeutic shouldbe confirmed with another method such as LC-MS/MS. Blood Venous blood specimen / Unknown 01/13/2025 1:34 PM EDT 01/13/2025 1:34 PM EDT us Maia Wallace MD LAB BLOOD ORDERAB LES Final Result Performing Organization Address City/[facility]/ZIP Co de Phone Number [facility] [address] [place] [phone] [phone] * Vitamin B12 (Cobalamin) and Folate Panel, Serum (01/13/2025 1:34 PM EDT) [facility] Vitamin B12 359 200 - 900 pg/mL [facility] Comment:NORMAL 200-900 PG/ML INDETERMINATE 160-199 PG/ML DEFICIENT < 160 PG/ML Folate 13.5 > or = 4.0 ng/mL [facility] Comment:Reference Values:> o r = 4.0 ng/mL< 4.0 ng/mL suggests folate deficiency Methotrexate, aminopterin and folinic acid(leucovorin) are chemotherapeutic agents whose molecularstructures are similar to folate; therefore, the Architectfolate assay cannot be used for patients using these drugs. Blood 01/13/2025 1:34 PM EDT 01/13/2025 1:34 PM EDT us Maia Wallace MD LAB BLOOD ORDERAB LES Final Result [facility] [address] [place] [phone] * TSH with Reflex to Free T4 (01/13/2025 1:34 PM EDT) [facility] TSH reflex Free T4 2.01 0.32 - 4.0 uIU/mL [facility] Blood 01/13/2025 1:34 PM EDT 01/13/2025 1:34 PM EDT us Maia Wallace MD LAB BLOOD ORDERAB LES Final Result Performing Organization Address City/[facility]/ZIP Co de Phone Number [facility] [address] [place] [phone] * Hepatitis C Antibody with Reflex to HCV, RNA, Quantitative, Real-Time PCR (01/13/2025 1:34 PM EDT) [facility] Hepatitis C Antibody Nonreactive Nonreactive [facility] Comment:Antibodies to HCV no t detected; does not exclude early acuteHCV infection. Blood Venous blood specimen / Unknown 01/13/2025 1:34 PM EDT 01/13/2025 1:34 PM EDT Maia Wallace MD LAB BLOOD ORDERAB LES Final Result Performing Organization Address [facility]/ZIP Co de Phone Number [facility] [address] [place] [phone] * Hepatitis B surface antigen, EIA (01/13/2025 1:34 PM EDT) Hepatitis B Surface Ag Negative Negative [facility] Blood Venous blood specimen / Unknown 01/13/2025 1:34 PM EDT 01/13/2025 1:34 PM EDT Maia Wallace MD LAB BLOOD ORDERAB LES Final Result Performing Organization Address [facility] Co de Phone Number [facility] [address] [place] [phone] * Hepatitis B Core Antibody, Total (01/13/2025 1:34 PM EDT) Hepatitis B Core Antibody Nonreactive Nonreactive [facility] Blood Venous blood specimen / Unknown 01/13/2025 1:34 PM EDT 01/13/2025 1:34 PM EDT Maia Wallace MD LAB BLOOD ORDERAB LES Final Result Performing Organization Address [facility] Co de Phone Number [facility] [address] [place] [phone] * HIV-1/2 Antigen and Antibodies, Fourth Generation, with Reflexes (01/13/2025 1:34 PM EDT) HIV AB/AG Nonreactive Nonreactive [facility] Comment:HIV-1 p24 Ag and/or HIV-1/HIV-2 Ab not detected.A test result that is nonreactive does not exclude thepossibility of exposure to or infection with HIV-1 and/orHIV-2. Nonreactive results in this assay for individualswith prior exposure to HIV-1 and/or HIV-2 may be due toantigen and antibody levels that are below the limit ofdetection of this assay.The Stratosni[employer]poque HIV Ag/Ab Combo assay result andsupplemental assay results should be interpreted inconjunction with the patient's clinical presentation,history and other laboratory results. If the results areinconsistent with clinical evidence, additional testing issuggested to confirm the result. Blood Venous blood specimen / Unknown 01/13/2025 1:34 PM EDT 01/13/2025 1:34 PM EDT us Maia Wallace MD LAB BLOOD ORDERAB LES Final Result Performing Organization Address [facility]/ZIP Co de Phone Number [facility] [address] [place] [phone] * Hepatitis B Surface Antibody, Qualitative (01/13/2025 1:34 PM EDT) [facility] ~Hepatitis B Surface Antibody NONREACTIVE Nonreactive [facility] Comment:Nonreactive: < 8.00 mIU/mL Blood Venous blood specimen / Unknown 01/13/2025 1:34 PM EDT 01/13/2025 1:34 PM EDT us Maia Wallace MD LAB BLOOD ORDERAB LES Final Result Performing Organization Address [facility]/ZIP Co de Phone Number [facility] [address] [place] [phone] * (ABNORMAL) CBC (01/13/2025 1:34 PM EDT) [facility] White Blood Count 3.3(L) 4.8 - 10.8 X10*3/uL [facility] Red Blood Count 4.28 4.20 - 5.50 X10*6/uL [facility] Hemoglobin 13.1 12.0 - 16.0 g/dl [facility] Hematocrit 38.4 37.0 - 47.0 % [facility] Mean Corpuscular Volume 89.7 80.0 - 98.0 fL [facility] Mean Corpuscular Hemoglobin 30.6 27.0 - 33.0 pg [facility] Mean Corpuscular HGB Conc 34.1 31.0 - 35.0 g/dl [facility] Red Cell Distribution Width 11.9 11.0 - 16.0 % [facility] Platelet Count 211 160 - 400 X10*3/uL [facility] Mean Platelet Volume 9.8 9.4 - 12.3 fL [facility] NRBC Pct Auto 0.0 0.0 - 0.2 /100WBC [facility] NRBC Abs Auto 0.000 0.0 - 0.012 X10*3/uL [facility] Blood Venous blood specimen / Unknown 01/13/2025 1:34 PM EDT 01/13/2025 1:34 PM EDT us Maia Wallace MD LAB BLOOD ORDERAB LES Final Result [facility] [address] [place] [phone] * Hemoglobin A1c (01/13/2025 1:34 PM EDT) Hemoglobin A1c 5.2 <6.0 % [facility] Comment:Hemoglobin A1C Refer ence Range Adults: 4.8 - 6.0 % Non diabetic: < 6.0 % Goal: < 7.0 %Additional Action Suggested: > 8.0 %Note: Hemoglobin A1c results are invalid for patients with abnormal amounts of HbF. Blood transfusions may impact the HbA1c concentration in the patient sample. Estimated Average Glucose 103 mg/dL [facility] Comment:eAG = Estimated ave rage glucose which is %A1C expressed asaverage glucose, using the formula of the A8F-UsilotlSyeuokj Glucose study (ADAG), Diabetes Care, Vol.31,#8,Nov. 2007 Blood Venous blood specimen / Unknown 01/13/2025 1:34 PM EDT 01/13/2025 1:34 PM EDT Maia Wallace MD LAB BLOOD ORDERAB LES Final Result Performing Organization Address City/[facility]/ZIP Co de Phone Number [facility] [address] [place] [phone] * (ABNORMAL) Lipid Panel, Standard (01/13/2025 1:34 PM EDT) Triglycerides 70 <150 mg/dL [facility] Comment:Desirable Triglyceri de: less than 150 mg/dLBorderline High Triglyceride 150-199 mg/dLHigh Triglyceride: 200-499 mg/dLVery High Triglyceride: greater than or equal to 5OO mg/dL Cholesterol 192 <200 mg/dL [facility] Comment:Desirable Cholestero l: less than 200 mg/dLBorderline High Cholesterol: 200-239 mg/dLHigh Cholesterol: greater than 239 mg/dL LDL Cholesterol Calculated 119(H) <100 mg/dL [facility] Comment:Desirable LDL: less than 100 mg/dLNear Optimal/Above Optimal LDL: 110- 129 mg/dLBorderline High LDL: 130-159 mg/dLHigh LDL: 160-189 mg/dLVery High LDL: greater than or equal to 190 mg/dL HDL Cholesterol 59 >40 mg/dL [facility] Comment:Desirable HDL: great er than 40 mg/dL Note: This HDL assay may give artificially low results in patients with liver disease. Blood Venous blood specimen / Unknown 01/13/2025 1:34 PM EDT 01/13/2025 1:34 PM EDT Maia Wallace MD LAB BLOOD ORDERAB LES Final Result Performing Organization Address City/[facility]/ZIP Co de Phone Number [facility] [address] [place] [phone] * (ABNORMAL) Comprehensive Metabolic Panel (01/13/2025 1:34 PM EDT) Sodium 141 135 - 145 mmol/L [facility] Potassium 4.2 3.3 - 5.1 mmol/L [facility] Chloride 109(H) 96 - 108 mmol/L [facility] Carbon Dioxide 26 22 - 29 mmol/L [facility] Anion Gap 10(L) 12 - 20 [facility] Urea Nitrogen (BUN) 21(H) 9 - 16 mg/dL [facility] Creatinine, Serum 0.62 0.5 - 1.4 mg/dL [facility] Estimated Glomerular Filt Rate >60 [facility] Comment:Chronic Kidney Disea se: Estimated GFR < 60 mL/min/1.34e8Diaqhe Kidney Disease: Estimated GFR < 15 mL/min/1.73m2 Glucose 101 60 - 115 mg/dL [facility] Calcium 9.3 8.4 - 10.2 mg/dL [facility] Bilirubin, Total 0.2 0.0 - 1.0 mg/dL [facility] Aspartate Amino Transferase 23 5 - 31 U/L [facility] Alanine Aminotransferase 12 0 - 31 U/L [facility] Total Protein 6.5 6.5 - 8.0 g/dL [facility] Albumin Level 4.0 3.5 - 5.0 g/dL [facility] Alkaline Phosphatase 51 39 - 117 U/L [facility] Blood Venous blood specimen / Unknown 01/13/2025 1:34 PM EDT 01/13/2025 1:34 PM EDT us Maia Wallace MD LAB BLOOD ORDERAB LES Final Result [facility] [address] [place] [phone] * XR Hip 2 or 3 Views Left (11/21/2024 4:15 PM EDT) Anatomical Region Laterality Modality Lower Extremities, Hip Left Radiograp hic Imaging 11/21/2024 4:15 PM EDT Narrative 11/21/2024 4:43 PM EDT [address] [address] XRay Report Signed Patient: Maia Roach MR#: [id number] : 1960 Acct:[id number] Age/Sex: 64 / F ADM Date: 11/21/24 Loc: HO.HHCX Attending Dr: Maia Wallace MD Ordering Physician: Maia Yarbrough MD Date of Service: 11/21/24 Procedure(s): XR hip LT min 2V Accession Number(s): [id number] cc: Maia Yarbrough MD EXAMINATION: XR HIP, [...] 11/21/24 1640 DD/ 1615 TD/TT: 11/21/24 1616 Model And Pattern Supervisor: Procedure Note Donotuseinterpreter, Image - 11/21/[address] [address] XRay Report Signed Patient: Maia RoachMR#: [id number] : 1960cct:[id number] Age/Sex: 64 / FADM Date: 11/21/24 Loc: HO.CX Attending Dr: Maia Wallace MD Ordering Physician: Maia Yarbrough MD Date of Service: 11/21/24 Procedure(s): XR hip LT min 2V Accession Number(s): [id number] cc: Maia Yarbrough MD EXAMINATION: XR HIP, [...] 11/21/24 1640 DD/ 1615 TD/TT: 11/21/24 1616 Model And Pattern Supervisor: us Maia Wallace MD IMG XR PROCEDURES Final Result * XR Knee 1-2 Views Bilateral (11/21/2024 1:44 PM EDT) Anatomical Region Laterality Modality Lower Extremities, Knee Bilateral Radiogra phic Imaging 11/21/2024 1:44 PM EDT Narrative 11/21/2024 4:40 [place] [address] XRay Report Signed Patient: Maia Roach MR#: [id number] : 1960 Acct:[id number] Age/Sex: 64 / F ADM Date: 11/21/24 Loc: HO.HHCX Attending Dr: Maia Wallace MD Ordering Physician: Maia Yarbrough MD Date of Service: 11/21/24 Procedure(s): XR Knee Hai 1or 2V Accession Number(s): [id number] cc: Maia Yarbrough MD Exam: X-ray, bilateral [...] joint space narrowing similar to the prior. Xzua-kq-eslbhmrr tricompartmental marginal ossified is present. There is [...] 11/21/24 1638 DD/ 1344 TD/TT: 11/21/24 1400 Model And Pattern Supervisor: Procedure Note Donotuseinterpreter, Image - 11/21/[address] [address] XRay Report Signed Patient: Bennie Roach#: [id number] : 8Acct:[id number] Age/Sex: 64 / FADM Date: 11/21/24 Loc: .HHCX Attending Dr: Maia Wallace MD Ordering Physician: Maia Yarbrough MD Date of Service: 08/04/25 Procedure(s): XR Knee Hai 1or 2V Accession Number(s): [id number] cc: Maia Yarbrough MD Exam: X-ray, bilateral [...] joint space narrowing similar to the prior. Byjv-jn-ipuqvrje tricompartmental marginal ossified is present. There is [...] 11/21/24 1638 DD/ 1344 TD/TT: 11/21/24 1400 Model And Pattern Supervisor: Maia Wallace MD IMG XR PROCEDURES Final Result * THINPREP PAP (06/11/2020 12:00 AM EST) Clinical Information: None given [facility] COMMENT SEE COMMENT [facility] [...] along with historic and current clinical information. Filter Washer: SEE COMMENT [facility] Comment: ALS, CT(ASCP) CT screening location: [address] [address] Interpretation/Res ult: SEE COMMENT [facility] Comment: Negative for intraepithelial lesion or malignancy. Atrophic pattern; predominantly parabasal cells LMP: NONE GIVEN [facility] Prev. BX: NONE GIVEN [facility] Prev. PAP: NONE GIVEN [facility] Review Filter Washer: SEE COMMENT [facility] Comment: BLC,CT(ASCP) CT screening location: [place] [address] SOURCE: None given [facility] Statement Of Adequacy: SATISFACTORY FOR EVALUATION [facility] 06/11/2020 Rajendra Kimball MD LAB PATHOLOGY ORDERABLES Fin al Result Performing Organization Address [facility] Co de Phone Number [facility] [address] * HPV GENOTYPES 16,18/45 (06/11/2020 12:00 AM EST) HPV 16 RNA NOT DETECTED NOT DETECTED [facility] HPV 18/45 RNA NOT DETECTED NOT DETECTED [facility] Comment: Methodology: Punch Press Feeder Mediated Amplification The analytical performance characteristics of this assay have been determined by [employer]. The modifications have not been cleared or approved by the FDA. This assay has been validated pursuant to the CLIA regulations and is used for clinical purposes. 06/11/2020 Rajendra Kimball MD LAB CYTOLOGY ORDERABLES Christy l Result Performing Organization Address [facility] Co de Phone Number [facility] [address] from Last 3 Months or Most Recently Relevant to Health Maintenance Insurance [facility] OPT[facility] (HMO D-SNP) DONI ANDINO [id number] Care Teams Pulp Mill Team Leader Relationship Specialty Start Date End Date Maia Yarbrough MD [address] [place] [phone] PCP - General Internal Medicine 11/28/22
--- OUTSIDE RECORDS SUMMARY | 2025-01-17 10:38 | XMS_ITS | Encounter Summary ---
Author Organization [employer] Address [address] [facility] [address] [place] [address] Care Team Providers Care Washcoat Wiper Name Role Phone Maia Yarbrough MD Primary Care Pro vider Reason for Visit * Reason Comments Pre-visit Planning SDOH unable to reach LVM Encounter Details Date Type Department Care Team (Late st Contact Info) Description 01/12/2025 Patient Outreach [facility] [address] [place] [address] Maia Yarbrough MD [address] [place] [address] Pre-visit Planning (SDOH unable to reach LVM [...] the past 12 months, has t he [employer], gas, oil or water [employer] threatened to shut off services in your [...] Description 01/19/2025 2:45 PM EDT Office Visit [facility] [address] [place] [address] Maia Yarbrough MD [address] [place] [address] documented as of this encounter Visit Diagnoses Not on filedocumented in this encounter Additional Health Concerns Assessment Noted Time PHQ-9 Depression Total Score: 16 024 11:46 AM EDT documented as of this encounter Care Teams Washcoat Wiper Relationship Specialty Start Date End Date Maia Yarbrough MD [address] [place] [phone] PCP - General Internal Medicine 11/28/22 documented as of this encounter
--- OUTSIDE RECORDS SUMMARY | 2025-01-17 10:38 | XMS_ITS | Encounter Summary ---
Author Organization [employer] Address [address] [place] [address] [address] [place] [address] Care Team Providers Care Steam Turbine Operator Name Role Phone Pat Walker Primary Care Provider Maia Figueroa MD Primary Care Pro vider Encounter Details Date Type Department Care Team (Late st Contact Info) Description 03/29/2022 Abstract [facility] [address] [place] [address] [phone] Provider, MD Fernanda Social History Tobacco Use [...] Description 01/19/2025 2:45 PM EDT Office Visit [facility] [address] [place] [phone] Maia Yarbrough MD [address] [place] [phone] documented as of this encounter Visit Diagnoses Not on filedocumented in this encounter Care Teams Steam Turbine Operator Relationship Specialty Start Date End Date Pat Walker FNP PCP - General Family Medicine 03/19/22 11/27/22 Maia Yarbrough MD [address] [place] [phone] PCP - General Internal Medicine 11/28/22 documented as of this encounter
--- OUTSIDE RECORDS SUMMARY | 2025-01-17 10:38 | XMS_ITS | Clinical Summary ---
Author Organization [facility] Address [address] [place] [address] Phone Care Team Providers Care Grating Machine Operator Name Role Phone Edwin Phillips Primary Care Provide r Encounters Date Type Department Care Team Description 11/30/2024 8:30 AM EDT Ancillary Procedure [facility] [address] [place] [address] Swelling of lower extremity 11/25/2024 8:50 AM EDT - 11/25/2024 11:59 PM EDT Hospital [facility] [address] [phone] Unspecified lump in unspecified breast Discharge Disposition: [...] Info) Description 02/21/2025 9:00 AM EST Appointment [facility] [address] [place] [phone] 02/21/2025 10:00 AM EST Appointment [facility] [address] [place] [phone] Health Maintenance Due Date Last Done Comments Colorectal Cancer Screening: Colonoscopy 1960 Hepatitis A Vaccines (1 of 2 - Risk 2-dose series) 1977 Zoster Vaccines (1 of 2) 1977 RSV Immunization Adult Patients (1 - Risk 60-74 years 1-dose series) 2018 Lung Cancer Screening (Low Dose CT) 03/19/2022 [...] performed with the patient in reverse trendelenburg. Pantry Chef Details A garcia scale, color and doppler [...] for biopsy. PQRI CPT II 3342F Code 72482, 16367 PQRI 225 CPT II 7025F TISSUE DENSITY: The breasts are almost entirely fatty. (BI-RADS Category A) IMPRESSION: Benign. BI-RADS CATEGORY: 2 - BENIGN RECOMMENDATION: Screening bilateral mammogram is recommended in 1 year. Mammo Location: [facility], [address] [place] [address] -------- FINAL REPORT -------- Dictated By: Zana Rene Dictated Date: 11/25/2024 09:09 ET Assigned Physician: Zana Rene Reviewed and Electronically Signed By: Zana Rene Signed Date: 11/25/2024 09:17 ET Workstation ID: [id number] Transcribed By: Self Edit Transcribed Date: 11/25/2024 [...] and CC projection is performed in the Mantex 2000-D unit. Computer aided detection utilizing the PaperGD system was utilized. FINDINGS: The breasts are [...] MLO and CC projection is performed in theMantex 2000-D unit. Computer aided detection utilizing the [...] for biopsy. PQRI CPT II 3342F Code 38718, 07152 PQRI 225 CPT II 7025F TISSUE DENSITY: The breasts are almost entirely fatty. (BI-RADS CategoryA) IMPRESSION: Benign. BI-RADS CATEGORY: 2 - BENIGN RECOMMENDATION: Screening bilateral mammogram is recommended in 1 year. Mammo Location: [facility] [place] [facility], [address] [place] [address] -------- FINAL REPORT -------- Dictated By: Zana Rene Dictated Date: 11/25/2024 09:09 ET Assigned Physician: Zana Rene Reviewed and Electronically Signed By: Zana Rene Signed Date: 11/25/2024 09:17 ET Workstation ID: [id number] Transcribed By: Self Edit Transcribed Date: 11/25/2024 09:09 ET Edwin Stover IMG BI PROCEDURES Fin al Result from Last 3 Months Insurance [employer] MEDICARE Member Subscriber Plan / Payer (Ef fective 2023-Present) Name:Roxi Roach Relation to Subscriber:Self Name:Roxi Roach Payer ID:[id number] Group ID:[id number] Type:Not on file Address: [facility] [address] [address] MEDICAID - [place] Care Teams Grating Machine Operator Relationship Specialty Start Date End Date Edwin Phillips [address] [place], [place] PCP - General Internal Medicine 11/25/24
[2025-01-17 11:47] LABS: Microalbum/Creatinine Ratio Ur 4.7 ug/mg cr (<30)
[2025-01-17 11:59] LABS: CT PCR Urine NOT DETECTED (Not Detect.); NG PCR Urine NOT DETECTED (Not Detect.)
== END 2025-01-17 09:48 | disposition home or self-care (01) ==
LOC: HO.LAB 09:47
PROVIDERS: PCP Student in an Organized Health Care Education/Training Program; Visit Provider Student in an Organized Health Care Education/Training Program
DX: Z20.2 Contact with and (suspected) exposure to infections with a predominantly sexual mode of transmission (principal); Z78.9 Other specified health status
CPT/HCPCS: 82043; 82570; 87491; 87591

== ENCOUNTER 2025-02-03 08:59 | Outpatient (AMB) | payer OTHER, SELFPAY ==
--- OUTSIDE RECORDS SUMMARY | 2025-02-02 12:59 | XMS_ITS | Encounter Summary ---
Author Organization [facility] Address [address] [place] [address] Care Team Providers Care Ndt Inspector Name Role Phone Edwin Phillips Primary Care Provide r Reason for Referral * Imaging (Emergency) - Authorized Specialty Diagnoses / Procedures Referred By Contac t Referred To Contact Diagnoses Swelling Procedures Vascular US duplex lower extremity venous bilateral Maia Yarbrough MD [address] [address] Phone: tel: [facility] Referral ID Status Reason Start Date Expiration Date V isits Requested Visits Authorized [id number] Authorized 01/31/2025 01/31/2026 1 1 Reason for Visit * Imaging (Emergency) - Authorized Specialty Diagnoses / Procedures Referred By Contramon t Referred To Contact Diagnoses Swelling Procedures Vascular US duplex lower extremity venous bilateral Maia Yarbrough MD [address] [facility] [address] [place] [address] Phone: tel: [facility] Referral ID Status Reason Start Date Expiration Date V isits Requested Visits Authorized [id number] Authorized 01/31/2025 01/31/2026 1 1 Encounter Details Date Type Department Care Team (Latest Contact Info) Description 02/02/2025 12:59 PM EDT - 02/02/2025 11:59 PM EDT Hospital Encounter [facility] Ultrasound [address] [place] [address] Swelling Discharge Disposition: Home or Self Care Social History Tobacco Use Types Packs/Day Years [...] Orientation Straight 11/24/2024 12 :40 PM EDT documented as of this encounter Discharge Disposition Disposition Code Departure Means Destination Home or Self Care documented in this encounter Plan of Treatment Upcoming Encounters Date Type Department Care Team (Late st Contact Info) Description 02/07/2025 3:00 PM EDT Appointment [facility] Ul[facility]ound [address] [place] [address] 02/07/2025 3:30 PM EDT Appointment [facility] [address] [place] [phone] 02/13/2025 10:00 AM EDT Appointment [facility] [address] [place] [address] 02/21/2025 9:00 AM EST Appointment [facility] Density [address] [place] [address] 02/21/2025 10:00 AM EST Appointment [facility] [address] [place] [address] documented as of this encounter Procedures Procedure Name Priority Date/Time Associated Diagnosis Comments VAS US DUPLEX LOWER EXT VENOUS BILAT STAT 02/02/2025 1:39 PM EDT Swelling documented in this encounter Results * Vascular US duplex lower extremity venous bilateral (02/02/2025 1:39 PM EDT) Anatomical Region Laterality Modality Vascular, Abdomen Ultrasound 02/02/2025 1:52 PM EDT Impressions 02/02/2025 1:52 PM EDT NO RIGHT OR LEFT LOWER EXTREMITY DEEP VENOUS THROMBOSIS. -------- FINAL REPORT -------- Dictated By: Micheal Clemente Dictated Date: 02/02/2025 13:52 ET Assigned Physician: Micheal Clemente Reviewed and Electronically Signed By: Micheal Clemente Signed Date: 02/02/2025 13:52 ET Workstation ID: [id number] Transcribed By: Self Edit Transcribed Date: 02/02/2025 13:52 ET Narrative 02/02/2025 1:52 PM EDT PROCEDURE: VAS US DUPLEX LOWER EXT VENOUS BILAT INDICATION: bilat swelling TECHNIQUE: 2-D and color Doppler imaging of the lower extremity venous vasculature with compression and augmentation maneuvers. COMPARISON: No priors available. FINDINGS: RIGHT: There is normal flow, compression, and augmentation from the common femoral through the popliteal vein. Visualized calf veins unremarkable. LEFT: There is normal flow, compression, and augmentation from the common femoral through the popliteal vein. Visualized calf veins unremarkable. Procedure Note Micheal Clemente MD - 02/02/2025 PROCEDURE: VAS US DUPLEX LOWER EXT VENOUS BILAT INDICATION: bilat swelling TECHNIQUE: 2-D and color Doppler imaging of the lower extremity venousvasculature with compression and augmentation maneuvers. COMPARISON: No priors available. FINDINGS: RIGHT: There is normal flow, compression, and augmentation from the commonfemoral through the popliteal vein. Visualized calf veins unremarkable. LEFT: There is normal flow, compression, and augmentation from the commonfemoral through the popliteal vein. Visualized calf veins unremarkable. IMPRESSION: NO RIGHT OR LEFT LOWER EXTREMITY DEEP VENOUS THROMBOSIS. -------- FINAL REPORT -------- Dictated By: Micheal Clemente Dictated Date: 02/02/2025 13:52 ET Assigned Physician: Micheal Clemente Reviewed and Electronically Signed By: Micheal Clemente Signed Date: 02/02/2025 13:52 ET Workstation ID: [id number] Transcribed By: Self Edit Transcribed Date: 02/02/2025 13:52 ET us Maia Wallace MD [facility] Final Result documented in this encounter Visit Diagnoses Diagnosis Swelling Localized superficial swelling, mass, or lump documented in this encounter Care Teams Ndt Inspector Relationship Specialty Start Date End Date Edwin Phillips [address] [place], [place] PCP - General Internal Medicine 11/25/24 documented as of this encounter
--- NOTE | 2025-02-03 07:55 | A.OFFVIS_ITS ---
Intake Visit Reasons: LDCT Allergies No Known Allergies (No Known Allergies*) Allergy (Unverified 02/04/23 15:23) HPI HPI LDCT: Details: Initial visit for this 64yo smoker with a 25+PYH. Patient started smoking at age 9 for 53 years at 1/2ppd. . Denies marijuana use. Denies second hand smoke exposure. Denies exposure to chemicals or substances like asbestos. . Denies known family history of lung cancer. Denies personal history of cancers. Denies chest CT in last year. . Denies recent travel outside the [place]. Denies recent respiratory illness or recent hospitalization for respiratory issues. Denies testing positive for COVID. Admits receiving COVID Vaccine. . Denies fever, chills, new/worsening cough, hemoptysis, hoarseness or dysphagia. Denies significant chest pain, significant dyspnea or unintentional weight loss. Patient Lung Cancer Screening Questionnaire reviewed with patient by provider. . Shared Decision Making Completed. Patient meets criteria. Discussed in detail with patient, the risk vs benefit of LDCT screening. Patient consents to proceed with scan. Discussed smoking cessation. [facility] Medical History (Updated 01/02/25 @ 08:09 by Roderick Fountain MD) Hypertension COPD (chronic obstructive pulmonary disease) Nicotine dependence, cigarettes, uncomplicated Alcohol use disorder Substance abuse Anxiety and depression Insomnia Osteoarthritis of knees, bilateral Urinary incontinence Hearing loss Family history of breast cancer Surgical History (Updated 12/23/24 @ 09:31 by Mariesl Salazar PA-C) History of left hip replacement (~2012) Family History (Updated 12/23/24 @ 09:21 by Marisel Salazar PA-C) Mother Breast cancer Maternal Grandmother Breast cancer Social History (Updated 02/03/25 @ 09:44 by Marisel Salazar PA-C) Patient Tobacco Use Status: Current everyday Tobacco user Tobacco use type: Cigarette Years Smoked: (onset 9yo, 1/2ppd x 55yrs, 25+PYH) Substance Use Type: Crack/Cocaine Assessment & Plan Assessment & Plan (1) Nicotine dependence, cigarettes, uncomplicated: Comment: (onset 9yo, 1/2ppd x 53yrs, 25+PYH) Code(s): F17.210 - Nicotine dependence, cigarettes, uncomplicated Category: Medical Plan: - SDM visit completed today in office. - Patient meets criteria for LDCT for lung cancer screening purposes and is asymptomatic. - Smoking cessation counseling offered. Patients can always call [phone]. - Will arrange for a LDCT scan of the chest for screening purposes at [facility]. - Risks, benefits, and alternatives were discussed in detail and the patient agrees to proceed. - Risks discussed include but are not limited to: radiation exposure, anxiety during testing and while awaiting results, false negatives, false positives and possibility of additional intervention such as further imaging or surgical procedures for benign disease. - Benefits are obviously detection of lung cancer at an early stage which can lead to improved outcomes. - Discussed the importance of screening program compliance with adherence to yearly LDCT scan as scheduled - or sooner interval scans for personalized screening regimen. - Discussed follow up plan. Our office will send a letter discussing results and if needed set up phone call and office visit based on CT findings. - Patient educated on results categorization and the management decisions for suspicious findings potentially found on the screening LDCT scan. Any patient with a Lung RADS score of 3 or 4 will be reviewed by a multidisciplinary team at [facility] to form a plan of action in regards to scan findings. - If further work up is warranted for a suspicious lung finding this will be followed by the Lung Cancer Screening program in conjunction with the Thoracic Surgery Department at [facility]. - A copy of the office note and LDCT will be sent to the patient's PCP - as well as documentation on any associated further plans of care. - Incidental findings on LDCT are the PCP's responsibility. These findings are indicated with an S finding on the LDCT Assessment. A note discussing the findings will be sent to the PCP who is then responsible for further management. - All questions answered.? Coding Level of Care Code Lung Cancer Screening G0296 Diagnoses Nicotine dependence, cigarettes, uncomplicated F17.210
--- OUTSIDE RECORDS SUMMARY | 2025-02-03 09:38 | XMS_ITS | Clinical Summary ---
Author Organization [employer] Address [address] [facility] [address] [place] [address] Care Team Providers Care Customer Training Specialist Name Role Phone Maia Yarbrough MD Primary Care Pro vider Allergies No known active allergies Medications * This document contains information received from the source organization and may not represent a complete record from that organization. Blood Pressure Monitor kit 1 Device Once per day. 1 kit 024 Active hydrOXYzine HCl (Atarax) 25 MG tablet 025 Active melatonin 10 MG tablet Take 1 tablet (10 mg) by mouth if needed at bedtime (insomnia). 90 tablet 025 Active albuterol (ProAir HFA) 108 (90 Base) MCG/ACT inhalerIndication s:Cigarette nicotine dependence without complication Inhale 2 puffs every 4 (four) hours if needed for wheezing. 18 g 3 025 Active lidocaine (Lidoderm) 5 % patchIndications: Chronic pain of both knees Apply 1 patch topically Once per day. Remove & discard patch within 12 hours or as directed by . 30 patch 2 025 Active aspirin 81 MG chewable tabletIndications :Hyperlipidemia, unspecified hyperlipidemia type Chew 1 tablet (81 mg) Once per day. 90 tablet 025 2025 Active atorvastatin (Lipitor) 10 MG tabletIndications :Hyperlipidemia, unspecified hyperlipidemia type Take 1 tablet (10 mg) by mouth Once per day. 90 tablet 025 2025 Active Diclofenac Sodium 1 % gel Apply 1 Application topically if needed each day (kne pain). 50 g 2 025 Active traZODone (Desyrel) 50 MG tablet Take 1 tablet (50 mg) by mouth at bedtime. 90 tablet Active Umeclidinium [place] 62.5 MCG/ACT aerosol powder Inhale 1 Act (62.5 mcg) Once per day. 30 Act 5 025 2025 Active cholecalciferol (Vitamin D-3) 25 MCG (1000 UT) tablet Take 1 tablet (25 mcg) by mouth Once per day. 90 tablet 1 2025 Active albuterol (ProAir HFA) 108 (90 Base) MCG/ACT inhalerIndication s:Cigarette nicotine dependence without complication Inhale 2 puffs every 4 (four) hours if needed for wheezing. 18 g 3 2024 Discontinued(R eorder (will not trigger notification to Pharmacy)) lidocaine (Lidoderm) 5 % patchIndications: Chronic pain of both knees Apply 1 patch topically Once per day. Remove & discard patch within 12 hours or as directed by MD. 30 patch 2 2024 Discontinued(R eorder (will not trigger notification to Pharmacy)) amLODIPine (Norvasc) 5 MG tablet Take 1 tablet (5 mg) by mouth Once per day. 90 tablet 2024 Discontinued(O ther) Umeclidinium [place] 62.5 MCG/ACT aerosol powder Inhale 1 Act (62.5 mcg) Once per day. 30 Act 5 2024 Discontinued(R eorder (will not trigger notification to Pharmacy)) Diclofenac Sodium 1 % gel Apply 1 Application topically if needed each day (kne pain). 50 g 2 2024 Discontinued(R eorder (will not trigger notification to Pharmacy)) traZODone (Desyrel) 50 MG tablet 2024 Discontinued(R eorder (will not trigger notification to Pharmacy)) traZODone (Desyrel) 50 MG tablet Take 1 tablet (50 mg) by mouth at bedtime. 90 tablet 2024 Discontinued(R eorder (will not trigger notification to Pharmacy)) aspirin 81 MG chewable tabletIndications :Hyperlipidemia, unspecified hyperlipidemia type Chew 1 tablet (81 mg) Once per day. 90 tablet 025 2024 Discontinued(R eorder (will not trigger notification to Pharmacy)) atorvastatin (Lipitor) 10 MG tabletIndications :Hyperlipidemia, unspecified hyperlipidemia type Take 1 tablet (10 mg) by mouth Once per day. 90 tablet 025 2024 Discontinued(R eorder (will not trigger notification to Pharmacy)) Active Problems Problem Noted Date Diagnosed Date HLD (hyperlipidemia) 01/21/2025 Left hip pain 11/22/2024 Cocaine use 11/22/2024 [...] Pt is currently engaged in services with [facility]. However, pt is not satisfied with telehealth [...] Pt is currently engaged in services with [facility]. However, pt is not satisfied with telehealth [...] Encounters Date Type Department Care Team Description 01/31/2025 Telephone [facility] [address] [place] [phone] Maia Yarbrough MD Lab Orders 01/22/2025 Orders Only [address] [address] Maia Yarbrough MD 01/20/[address] [address] Maia Yarbrough MD Prior Authorization 01/19/2025 2:45 PM EDT Office Visit [address] [address] Maia Yarbrough MD Hyperlipidemia, unspecified hyperlipidemia type (Primary Dx); Encounter for immunization; Cigarette nicotine dependence without complication; Chronic pain of both knees; Hypertension, unspecified type; Class 1 obesity due to excess calories without serious comorbidity with body mass index (BMI) of 34.0 to 34.9 in adult; Health care maintenance; Cocaine use; Depression, recurrent (CMS/HCC); History of ETOH abuse; Poor memory 01/19/2025 Travel 01/18/[address] [address] Maia Yarbrough MD chart prep 01/12/[address] [facility] [address], [place] [phone] Maia Yarbrough MD Pre-visit Planning ([facility] unable to reach [facility] ) 12/08/[address] [address] Maia Yarbrough MD Request For Order(s) 11/22/[address] [facility] [address], [place] [phone] Glenda Baker appointment reminder 11/22/2024 Results Follow-Up [address] [address] Maia Yarbrough MD XR Hip 2 or 3 Views Left, CBC, Comprehensive Metabolic Panel, Additional followed-up results: 2 11/21/2024 1:00 PM EDT Office Visit [address] [address] Maia Yarbrough MD Colon cancer screening (Primary [...] Leukopenia, unspecified type 11/21/2024 Travel 11/18/[address] [address] Maia Yarbrough MD chartprep 11/11/2024 Patient Outreach [address] [address] Maia Yarbrough MD Pre-visit Planning (Pre-visit planning - LVM ) from Last 3 Months Immunizations Immunization Administration Dates Next Due Influenza injectable quadriv alent preservative free 06/26/2022,06/11/2020,05/20/2019 Influenza, High Dose Seasona l, Preservative Free 01/19/2025 Pfizer Covid-19 Vaccine 12+ 07/01/2023 Pneumococcal Conjugate PCV 20 11/11/2022 Pneumococcal Polysaccharide PPSV23 05/20/2019 RSV Bivalent 12/06/2024 Tdap 05/20/2019 Zoster, Recombinant 12/06/2024 Family History Medical History Relation Name Comments [...] Answer Date Recorded Patient Health Questionnaire-9 Score 23 01/19/2025 Patient Health Questionnaire-9 Score 23 01/19/2025 Last PHQ-9: Questionnaire Data Not on file 1 Housing Stability Answer Date Recorded What is your housing situation today? I do not have housing (Staying with others, in a hotel, in a fdc, living outside on the street, on a [...] Date Recorded Patient Health Questionnaire-2 Score 6 01/19/2025 Internet Access Answer Date Recorded Internet Access [...] Sign Reading Time Taken Comments Blood Pressure 140/68 01/19/2025 3:21 PM EDT Pulse 73 01/19/2025 3:21 PM EDT Temperature 36.1 C (97 F) 01/19/2025 3:21 PM EDT Respiratory Rate 16 01/19/2025 3:21 PM EDT Oxygen Saturation 98% 01/19/2025 3:21 PM EDT Inhaled Oxygen Concentration - - Weight 85.2 kg (187 lb 12.8 oz) 01/19/2025 3:21 PM EDT Height 152.4 cm (5') 01/19/2025 3:21 PM EDT Body Mass Index 36.68 01/19/2025 3:21 PM EDT Plan of Treatment Health Maintenance Due Date Last Done Comments CT Colonography 1960 Colonoscopy 1960 Colorectal Cancer Screening 1960 FIT DNA/Cologuard 1960 FIT 1960 FOBT 1960 Sigmoidoscopy 1960 Lung Cancer Screening 02/28/2008 COVID-19 Vaccine ( season) 2024 07/01/2023, 10/25/2020, 09/25/2020 Zoster Vaccines (2 of 2) 01/31/2025 12/06/2024 HPV/Cotest 06/11/2025 06/11/2020 Pap Smear 06/11/2025 06/11/2020 Depression Monitoring 07/20/2025 01/19/2025, 025 Alcohol/Substance Use Screening 11/21/2025 11/21/2024 SDOH Screening 11/21/2025 11/21/2024 Tobacco Screening 01/19/2026 01/19/2025 Mammogram 11/25/2026 11/25/2024, 08/0 11/2024, 07/23/2023 DTaP/Tdap/Td Vaccines (2 - Td or Tdap) 05/20/2029 05/20/2019 Lipid Panel 01/13/2030 01/13/2025, 0612/2023, 11/11/2022, Additional history exists Pneumococcal Vaccine: 50+ Years Completed 11/11/2022, 05/20/2019 RSV Patients and Patients Aged 60 years or older Completed 12/06/2024 Hepatitis C Screening Completed 01/13/2025 , 10/17/2023, 10/17/2023, Additional history exists Influenza Vaccine Completed 01/19/2025, , 06/11/2020, Additional history exists HIB Vaccines Aged Out [...] Procedure Name Priority Date/Time Associated Diagnosis Comments AMB REFERRAL TO PHYSICAL THERAPY Routine 01/20/2025 Chronic pain of both knees ALBUMIN, RANDOM URINE W/CREATININE Routine 01/17/2025 9:55 AM EDT Health care directive on file CHLAMYDIA/TRICHOMONAS/ NEISSERIA GONORRHOEAE, PCR, URINE Routine 01/17/2025 9:55 AM EDT Health care directive on file VITAMIN D,25-OH,TOTAL,IA Routine 01/13/2025 1:34 PM EDT [...] Recently Relevant to Health Maintenance Results * Referral to Physical Therapy (01/20/2025) us Maia Wallace MD OUTPATIENT REFERR AL ORDERABLES Final Result * Chlamydia/Trichomonas/Neisseria gonorrhoeae, PCR, Urine (01/17/2025 9:55 AM EDT) CT PCR, Urine NOT DETECTED Not Detect. [facility] Comment:A not detected test result does not exclude the possibilityof infection because test results can be affected byimproper specimen collection, concurrent antibiotic therapy,or the number of organisms in the specimen which may bebelow the sensitivity of the test. As with many diagnostictests, results from the Xpert CT/NG assay should beinterpreted in conjunction with other laboratory andclinical data available to the clinician.The Xpert CT/NG assay should not be used for the evaluationof suspected sexual abuse or for other medico-legalindications. Additional testing is recommended in anycircumstance when false positive or false negative resultscould lead to adverse medical, social or psychologicalconsequences. NG PCR, Urine NOT DETECTED Not Detect. [facility] Comment:A not detected test result does not exclude the possibilityof infection because test results can be affected byimproper specimen collection, concurrent antibiotic therapy,or the number of organisms in the specimen which may bebelow the sensitivity of the test. As with many diagnostictests, results from the Xpert CT/NG assay should beinterpreted in conjunction with other laboratory andclinical data available to the clinician.The Xpert CT/NG assay should not be used for the evaluationof suspected sexual abuse or for other medico-legalindications. Additional testing is recommended in anycircumstance when false positive or false negative resultscould lead to adverse medical, social or psychologicalconsequences. Urine (Urine, Random) 01/17/2025 9:55 AM EDT 01/17/2025 10:20 AM EDT us Maia Wallace MD LAB URINE ORDERAB LES Final Result [facility] [address] [place] [phone] * Albumin, Random Urine W/Creatinine (01/17/2025 9:55 AM EDT) Pathologist [facility] Creatinine, Urine 127.57 mg/dL [facility] Microalbumin Urine 6.0 mg/L [facility] Microalbum Creatinine Ratio Ur 4.7 <30 ug/mg cr [facility] Comment:Albumin/Creatinine R atio Reference Ranges: Normal: < 30 ug/mg creatinine Microalbuminuria: 30 - 300 ug/mg creatinineClinical Albuminuria: > 300 ug/mg creatinine Urine (Urine, Random) 01/17/2025 9:55 AM EDT 01/17/2025 10:20 AM EDT Maia Wallace MD LAB URINE ORDERAB LES Final Result Performing Organization Address City/[facility]/ZIP Co de Phone Number [facility] [address] [place] [phone] * Syphilis Screen (01/13/2025 1:34 PM EDT) Syphilis Screen Nonreactive Nonreactive [facility] Blood 01/13/2025 1:34 PM EDT 01/13/2025 1:34 PM EDT us Maia Wallace MD LAB BLOOD ORDERAB LES Final Result Performing Organization Address [facility] Co de Phone Number [facility] [address] [place] [phone] * (ABNORMAL) Vitamin D, 25-Hydroxy, Total, Immunoassay (01/13/2025 1:34 PM EDT) Vitamin D 25-OH Total 25.2(L) >30 ng/mL [facility] Comment: Health Based Reference Values*< 20 ng/mL [id number] ng/mL Insufficient> 30 ng/mL Sufficient*Leonidas PERALTA. N [...] ORDERAB LES Final Result Performing Organization Address [facility]/ZIP Co de Phone Number [facility] [address] [place] [phone] * Vitamin B12 (Cobalamin) and Folate Panel, Serum (01/13/2025 1:34 PM EDT) Vitamin B12 359 200 - 900 pg/mL [facility] Comment:NORMAL 200-900 PG/ML INDETERMINATE 160-199 PG/ML DEFICIENT < 160 PG/ML Folate 13.5 > or = 4.0 ng/mL [facility] Comment:Reference Values:> o r = 4.0 ng/mL< 4.0 ng/mL suggests folate deficiency Methotrexate, aminopterin and folinic acid(leucovorin) are chemotherapeutic agents whose molecularstructures are similar to folate; therefore, the Architectfolate assay cannot be used for patients using these drugs. Blood 01/13/2025 1:34 PM EDT 01/13/2025 1:34 PM EDT Maia Wallace MD LAB BLOOD ORDERAB LES Final Result Performing Organization Address [facility] Co de Phone Number [facility] [address] [place] [phone] * TSH with Reflex to Free T4 (01/13/2025 1:34 PM EDT) Pathologist [facility] TSH reflex Free T4 2.01 0.32 - 4.0 uIU/mL [facility] Blood 01/13/2025 1:34 PM EDT 01/13/2025 1:34 PM EDT us Maia Wallace MD LAB BLOOD ORDERAB LES Final Result [facility] [address] [place] [phone] * Hepatitis C Antibody with Reflex to HCV, RNA, Quantitative, Real-Time PCR (01/13/2025 1:34 PM EDT) [facility] Hepatitis C Antibody Nonreactive Nonreactive [facility] Comment:Antibodies to HCV no t detected; does not exclude early acuteHCV infection. Blood Venous blood specimen / Unknown 01/13/2025 1:34 PM EDT 01/13/2025 1:34 PM EDT us Maia Wallace MD LAB BLOOD ORDERAB LES Final Result Performing Organization Address City/[facility]/ZIP Co de Phone Number [facility] [address] [place] [phone] * Hepatitis B surface antigen, EIA (01/13/2025 1:34 PM EDT) [facility] Hepatitis B Surface Ag Negative Negative [facility] Blood Venous blood specimen / Unknown 01/13/2025 1:34 PM EDT 01/13/2025 1:34 PM EDT us Maia Wallace MD LAB BLOOD ORDERAB LES Final Result Performing Organization Address City/[facility]/ZIP Co de Phone Number [facility] [address] [place] [phone] * Hepatitis B Core Antibody, Total (01/13/2025 1:34 PM EDT) [facility] Hepatitis B Core Antibody Nonreactive Nonreactive [facility] Blood Venous blood specimen / Unknown 01/13/2025 1:34 PM EDT 01/13/2025 1:34 PM EDT Maia Wallace MD LAB BLOOD ORDERAB LES Final Result Performing Organization Address City/[facility]/ZIP Co de Phone Number [facility] [address] [place] [phone] * HIV-1/2 Antigen and Antibodies, Fourth Generation, with Reflexes (01/13/2025 1:34 PM EDT) [facility] HIV AB/AG Nonreactive Nonreactive [facility] Comment:HIV-1 p24 Ag and/or HIV-1/HIV-2 Ab not detected.A test result that is nonreactive does not exclude thepossibility of exposure to or infection with HIV-1 and/orHIV-2. Nonreactive results in this assay for individualswith prior exposure to HIV-1 and/or HIV-2 may be due toantigen and antibody levels that are below the limit ofdetection of this assay.The Particle CodeniVupen HIV Ag/Ab Combo assay result andsupplemental assay results should be interpreted inconjunction with the patient's clinical presentation,history and other laboratory results. If the results areinconsistent with clinical evidence, additional testing issuggested to confirm the result. Blood Venous blood specimen / Unknown 01/13/2025 1:34 PM EDT 01/13/2025 1:34 PM EDT us Maia Wallace MD LAB BLOOD ORDERAB LES Final Result Performing Organization Address City/[facility]/ZIP Co de Phone Number [facility] [address] [place] [phone] * Hepatitis B Surface Antibody, Qualitative (01/13/2025 1:34 PM EDT) [facility] ~Hepatitis B Surface Antibody NONREACTIVE Nonreactive [facility] Comment:Nonreactive: < 8.00 mIU/mL Blood Venous blood specimen / Unknown 01/13/2025 1:34 PM EDT 01/13/2025 1:34 PM EDT us Maia Wallace MD LAB BLOOD ORDERAB LES Final Result Performing Organization Address City/[facility]/ZIP Co de Phone Number [facility] [address] [place] [phone] * (ABNORMAL) CBC (01/13/2025 1:34 PM EDT) White Blood Count 3.3(L) 4.8 - 10.8 X10*3/uL [facility] Red Blood Count 4.28 4.20 - 5.50 X10*6/uL [facility] Hemoglobin 13.1 12.0 - 16.0 g/dl [facility] Hematocrit 38.4 37.0 - 47.0 % [facility] Mean Corpuscular Volume 89.7 80.0 - 98.0 fL [facility] Mean Corpuscular Hemoglobin 30.6 27.0 - 33.0 pg [facility] Mean Corpuscular HGB Conc 34.1 31.0 - 35.0 g/dl [facility] Red Cell Distribution Width 11.9 11.0 - 16.0 % [facility] Platelet Count 211 160 - 400 X10*3/uL [facility] Mean Platelet Volume 9.8 9.4 - 12.3 fL [facility] NRBC Pct Auto 0.0 0.0 - 0.2 /100WBC [facility] NRBC Abs Auto 0.000 0.0 - 0.012 X10*3/uL [facility] Blood Venous blood specimen / Unknown 01/13/2025 1:34 PM EDT 01/13/2025 1:34 PM EDT us Maia Wallace MD LAB BLOOD ORDERAB LES Final Result [facility] [address] [place] [phone] * Hemoglobin A1c (01/13/2025 1:34 PM EDT) Hemoglobin A1c 5.2 <6.0 % [facility] Comment:Hemoglobin A1C Refer ence Range Adults: 4.8 - 6.0 % Non diabetic: < 6.0 % Goal: < 7.0 %Additional Action Suggested: > 8.0 %Note: Hemoglobin A1c results are invalid for patients with abnormal amounts of HbF. Blood transfusions may impact the HbA1c concentration in the patient sample. Estimated Average Glucose 103 mg/dL [facility] Comment:eAG = Estimated ave rage glucose which is %A1C expressed asaverage glucose, using the formula of the E7B-PmdwtjzKjfaoba Glucose study (ADAG), Diabetes Care, Vol.31,#8,Nov. 2007 Blood Venous blood specimen / Unknown 01/13/2025 1:34 PM EDT 01/13/2025 1:34 PM EDT us Maia Wallace MD LAB BLOOD ORDERAB LES Final Result Performing Organization Address [facility]/ZIP Co de Phone Number [facility] [address] [place] [phone] * (ABNORMAL) Lipid Panel, Standard (01/13/2025 1:34 PM EDT) Triglycerides 70 <150 mg/dL [facility] Comment:Desirable Triglyceri de: less than 150 mg/dLBorderline High Triglyceride 150-199 mg/dLHigh Triglyceride: 200-499 mg/dLVery High Triglyceride: greater than or equal to 5OO mg/dL Cholesterol 192 <200 mg/dL [facility] Comment:Desirable Cholestero l: less than 200 mg/dLBorderline High Cholesterol: 200-239 mg/dLHigh Cholesterol: greater than 239 mg/dL LDL Cholesterol Calculated 119(H) <100 mg/dL [facility] Comment:Desirable LDL: less than 100 mg/dLNear Optimal/Above Optimal LDL: 110- 129 mg/dLBorderline High LDL: 130-159 mg/dLHigh LDL: 160-189 mg/dLVery High LDL: greater than or equal to 190 mg/dL HDL Cholesterol 59 >40 mg/dL [facility] Comment:Desirable HDL: great er than 40 mg/dL Note: This HDL assay may give artificially low results in patients with liver disease. Blood Venous blood specimen / Unknown 01/13/2025 1:34 PM EDT 01/13/2025 1:34 PM EDT us Maia Wallace MD LAB BLOOD ORDERAB LES Final Result [facility] [address] [place] [phone] * (ABNORMAL) Comprehensive Metabolic Panel (01/13/2025 1:34 PM EDT) Sodium 141 135 - 145 mmol/L [facility] Potassium 4.2 3.3 - 5.1 mmol/L [facility] Chloride 109(H) 96 - 108 mmol/L [facility] Carbon Dioxide 26 22 - 29 mmol/L [facility] Anion Gap 10(L) 12 - 20 [facility] Urea Nitrogen (BUN) 21(H) 9 - 16 mg/dL [facility] Creatinine, Serum 0.62 0.5 - 1.4 mg/dL [facility] Estimated Glomerular Filt Rate >60 [facility] Comment:Chronic Kidney Disea se: Estimated GFR < 60 mL/min/1.81d2Qgfdyb Kidney Disease: Estimated GFR < 15 mL/min/1.73m2 Glucose 101 60 - 115 mg/dL [facility] Calcium 9.3 8.4 - 10.2 mg/dL [facility] Bilirubin, Total 0.2 0.0 - 1.0 mg/dL [facility] Aspartate Amino Transferase 23 5 - 31 U/L [facility] Alanine Aminotransferase 12 0 - 31 U/L [facility] Total Protein 6.5 6.5 - 8.0 g/dL [facility] Albumin Level 4.0 3.5 - 5.0 g/dL [facility] Alkaline Phosphatase 51 39 - 117 U/L [facility] Blood Venous blood specimen / Unknown 01/13/2025 1:34 PM EDT 01/13/2025 1:34 PM EDT us Maia Wallace MD LAB BLOOD ORDERAB LES Final Result Performing Organization Address City/State/[facility] Co de Phone Number [facility] [address] [place] [phone] * XR Hip 2 or 3 Views Left (11/21/2024 4:15 PM EDT) Anatomical Region Laterality Modality Lower Extremities, Hip Left Radiograp hic Imaging 11/21/2024 4:15 PM EDT Narrative 11/21/2024 4:43 PM EDT [address] [address] XRay Report Signed Patient: Maia Roach MR#: [id number] : 1960 Acct:[id number] Age/Sex: 64 / F ADM Date: 11/21/24 Loc: HO.HHCX Attending Dr: Maia Wallace MD Ordering Physician: Maia Yarbrough MD Date of Service: 11/21/24 Procedure(s): XR hip LT min 2V Accession Number(s): [id number] cc: Maia Yarbrough MD EXAMINATION: XR HIP, [...] 11/21/24 1640 DD/ 1615 TD/TT: 11/21/24 1616 Ecologist Technician: Procedure Note Donotuseinterpreter, Image - 11/21/[address] [address] XRay Report Signed Patient: Maia RoachMR#: [id number] : 8Acct:[id number] Age/Sex: 64 / FADM Date: 11/21/24 Loc: .HHX Attending Dr: Maia Wallace MD Ordering Physician: Maia Yarbrough MD Date of Service: 11/21/24 Procedure(s): XR hip LT min 2V Accession Number(s): [id number] cc: Maia Yarbrough MD EXAMINATION: XR HIP, [...] 11/21/24 1640 DD/ 1615 TD/TT: 11/21/24 1616 Ecologist Technician: Maia Wallace MD IMG XR PROCEDURES Final Result * XR Knee 1-2 Views Bilateral (11/21/2024 1:44 PM EDT) Anatomical Region Laterality Modality Lower Extremities, Knee Bilateral Radiogra phic Imaging 11/21/2024 1:44 PM EDT Narrative 11/21/2024 4:40 PM EDT [address] [address] XRay Report Signed Patient: Maia Roach MR#: [id number] : 1960 Acct:[id number] Age/Sex: 64 / F ADM Date: 11/21/24 Loc: .HHCX Attending Dr: Maia Wallace MD Ordering Physician: Maia Yarbrough MD Date of Service: 11/21/24 Procedure(s): XR Knee Hai 1or 2V Accession Number(s): [id number] cc: Maia Yarbrough MD Exam: X-ray, bilateral [...] joint space narrowing similar to the prior. Gpvs-ow-ojgxejfu tricompartmental marginal ossified is present. There is [...] 11/21/24 1638 DD/ 1344 TD/TT: 11/21/24 1400 Ecologist Technician: Procedure Note Donotwindyinterpreter, Image - 11/21/[address] [address] XRay Report Signed Patient: Maia RoachMR#: [id number] : 1960cct:[id number] Age/Sex: 64 / FADM Date: 11/21/24 [facility]: Maia Wallace MD Ordering Physician: Maia Yarbrough MD Date of Service: 11/21/24 Procedure(s): XR Knee Hai 1or 2V Accession Number(s): [id number] cc: Maia Yarbrough MD Exam: X-ray, bilateral [...] joint space narrowing similar to the prior. [id number] tricompartmental marginal ossified is present. There is [...] 11/21/24 1638 DD/ 1344 TD/TT: 11/21/24 1400 Ecologist Technician: us Maia Wallace MD IMG XR PROCEDURES [...] along with historic and current clinical information. Farm Tractor Mechanic: SEE COMMENT [facility] Comment: ALS, CT(ASCP) CT screening location: [place] [address] Interpretation/Res ult: SEE COMMENT [facility] Comment: Negative for intraepithelial lesion or malignancy. Atrophic pattern; predominantly parabasal cells LMP: NONE [facility]IVEN [facility] Prev. BX: NONE [facility] Prev. PAP: NONE [facility]IVEN [facility] Review Farm Tractor Mechanic: SEE COMMENT [facility] Comment: BLC,CT(ASCP) CT screening location: [place] [address] SOURCE: None given [facility] Statement Of Adequacy: SATISFACTORY FOR EVALUATION [facility] 06/11/2020 us Rajendra Kimball MD LAB PATHOLOGY ORDERABLES Fin al Result [facility] [address] * HPV GENOTYPES 16,18/45 (06/11/2020 12:00 AM EST) HPV 16 RNA NOT DETECTED NOT DETECTED [facility] HPV 18/45 RNA NOT DETECTED NOT DETECTED [facility] Comment: Methodology: Yarder Puncher Mediated Amplification The analytical performance characteristics of this assay have been determined by [facility]. The modifications have not been cleared or approved by the FDA. This assay has been validated pursuant to the CLIA regulations and is used for clinical purposes. 06/11/2020 us Rajendra Kimball MD LAB CYTOLOGY ORDERABLES Christy suarez Result [facility] [address] [place] [address], from Last 3 Months or Most Recently Relevant to Health Maintenance Insurance [facility] [employer] (HMO D-SNP) [place] [id number] Care Teams Customer Training Specialist Relationship Specialty Start Date End Date Maia Yarbrough MD [address] [place] [id number] PCP - General Internal Medicine 11/28/22
--- OUTSIDE RECORDS SUMMARY | 2025-02-03 09:38 | XMS_ITS | Encounter Summary ---
Author Organization [employer] Address [address] [place] [address] 7 [place] [address] Care Team Providers Care Fruit Thinner Machine Operator Name Role Phone Pat Walker Primary Care Provider Bela Maia Mcrae MD Primary Care Pro vider Encounter Details Date Type Department Care Team (Late st Contact Info) Description 03/29/2022 Abstract [facility] [address] [place], [place] [phone] Provider, MD Fernanda Social History Tobacco Use Types Packs/Day Years Used Date Smoking Tobacco: Never Assessed Comments Unknown Sex and Gender Information Value Date Recorded Sex Assigned at Female 02/17/2022 10:14 AM EDT Legal Sex Female 10:14 AM EDT Gender Identity Female 02/17/2022 10:14 AM EDT Sexual Orientation Straight 07/01/2023 11 :24 AM EDT documented as of this encounter Plan of Treatment Not on file documented as of this encounter Visit Diagnoses Not on filedocumented in this encounter Care Teams Fruit Thinner Machine Operator Relationship Specialty Start Date End Date Pat Walker FNP PCP - General Family Medicine 03/19/22 11/27/22 Maia Yarbrough MD [address] [place], [place] [phone] PCP - General Internal Medicine 11/28/22 documented as of this encounter
--- OUTSIDE RECORDS SUMMARY | 2025-02-03 09:38 | XMS_ITS | Encounter Summary ---
Author Organization [employer] Address [address] [place] [address] 7 [place] [address] Care Team Providers Care Deputy Sheriff Bailiff Name Role Phone Maia Yarbrough MD Primary Care Pro vider Reason for Visit * Reason Onset Date Comments Lab Orders 01/31/2025 Encounter Details Date Type Department Care Team ([facility] st Contact Info) Description 01/31/2025 Telephone [facility]INE [address] [place], [place] [phone] Maia Yarbrough MD [address] [place] [address] Lab Orders Social History Tobacco Use Types Packs/Day Years [...] as of this encounter Miscellaneous Notes * Telephone Encounter - Ame Vázquez RN - 02/02/2025 11:09 AM EDT TC placed to barbara Osei clinical recreation facility manager at [facility] who requested that the imaging order for US AbdomenComp w/Elastography be sent to her office. Imaging order faxed to [phone] * Telephone Encounter - Helen Ovalle - 02/01/2025 2:06 PM EDT Tc from [facility] given the direct fax number Fax #[phone] * Telephone Encounter - Michael Chan - 01/31/2025 2:39 PM EDT Tc from [facility] Adams with [facility] requesting orders for US Abdominal comp with elastophraphy and Insuffiencey for legs to be sent to [facility]. Any questions contact [facility] at [phone] documented in this encounter Plan of Treatment Not on file documented as of this encounter Visit Diagnoses Not on filedocumented in this encounter Additional Health Concerns Assessment Noted Time PHQ-9 Depression Total Score: 23 025 3:22 PM EDT documented as of this encounter Care Teams Deputy Sheriff Bailiff Relationship Specialty Start Date End Date Maia Yarbrough MD [address] [place] [phone] PCP - General Internal Medicine 11/28/22 documented as of this encounter
--- OUTSIDE RECORDS SUMMARY | 2025-02-03 09:38 | XMS_ITS | Encounter Summary ---
Author Organization [employer] Address [address] [place] [address] Care Team Providers Care Welcome Wagon Host/Hostess Name Role Phone Pat Walker JOINT MAKER MACHINE Primary Care Provider Maia Figueroa MD Primary Care Pro vider Reason for Visit * Reason Comments Med Change Request Encounter Details Date Type Department Care Team (Late st Contact Info) Description 06/26/2022 Refill [facility] MEDICINE [address] [place] [address] Pat Walker FNP Elevated BP without diagnosis [...] documented as of this encounter Care Teams Welcome Wagon Host/Hostess Relationship Specialty Start Date End Date Pat Walker FNP PCP - General Family Medicine 03/19/22 11/27/22 Maia Yarbrough MD [address] [place] [phone] PCP - General Internal Medicine 11/28/22 documented as of this encounter
--- OUTSIDE RECORDS SUMMARY | 2025-02-03 09:38 | XMS_ITS | Clinical Summary ---
Author Organization [facility] Address [address] [place] [address] Phone Care Team Providers Care Sugar Grinder Name Role Phone Edwin Phillips Primary Care Provide r Encounters Date Type Department Care Team Description 02/02/2025 12:59 PM EDT - 02/02/2025 11:59 PM EDT Hospital Encounter [facility] Ultrasound [address] [place] [phone] Swelling Discharge Disposition: Home or Self Care 11/30/2024 8:30 AM EDT Ancillary Procedure [facility] [address] [place] [address] Swelling of lower extremity 11/25/2024 8:50 AM EDT - 11/25/2024 11:59 PM EDT Hospital [facility] at [address] [phone] Unspecified lump in unspecified breast Discharge Disposition: [...] Info) Description 02/07/2025 3:00 PM EDT Appointment [facility] Ultrasound [address] [place] [address] 02/07/2025 3:30 PM EDT Appointment [facility] Ultrasound [address] [place] [address] 02/13/2025 10:00 AM EDT Appointment [facility] Ultrasound [address] [place] [address] 02/21/2025 9:00 AM EST Appointment [facility] Bone Density [address] [place] [address] 02/21/2025 10:00 AM EST [facility]ointment [facility] [address] [place] [address] Health Maintenance Due Date Last Done Comments Colorectal Cancer Screening: Colonoscopy 1960 Hepatitis A Vaccines (1 of 2 - Risk 2-dose series) 1977 Lung Cancer Screening (Low Dose CT) 03/19/2022 Medicare Annual Wellness Visit 03/19/2022 Osteoporosis Screening (Bone Density Screening) 03/19/2022 Social Influencers of Health Screening 03/19/2022 Falls Risk Assessment 2023 Depression Screening 04/20/2024 COVID-19 Vaccine ( season) 2024 07/01/2023, 10/25/2020, 09/25/2020 Zoster Vaccines (2 of 2) 01/31/2025 12/06/2024 Hypertension/CHF/CAD Annual BMP Blood Test 01/13/2026 01/13/2025 Breast Cancer Screening 11/25/2026 11/25/2024, 07/16 DTaP,Tdap,and Td Vaccines (2 - Td or Tdap) 05/20/2029 05/20/2019 Cholesterol Screening (Lipid Panel) 01/13/2030 01/13/2025, 10/17/2023 Pneumococcal Vaccine: 50+ Years Completed 11/11/2022, 05/20/2019 RSV Immunization Adult Patients Completed 12/06/2024 Hepatitis C Screening Completed 01/13/2025, 024 Influenza Vaccine Completed 01/19/2025, , 06/11/2020, Additional [...] 20 months Aged Out No longer eligible based on patient's age to complete this topic Varicella Vaccines Aged Out No longer eligible based on patient's age to complete this topic Procedures Procedure Name Priority Date/Time Associated Diagnosis Comments VAS US DUPLEX LOWER EXT VENOUS BILAT STAT 02/02/2025 1:39 PM EDT Swelling VAS US DUPLEX LOWER EXT VENOUS INSUFFICIENCY [...] Signed Date: 02/02/2025 13:52 ET Workstation ID: [id number] Transcribed By: Self Edit Transcribed Date: 02/02/2025 [...] Signed Date: 02/02/2025 13:52 ET Workstation ID: [id number] Transcribed By: Self Edit Transcribed Date: 02/02/2025 13:52 ET us Maia Wallace MD CV VASCULAR PROCE DURES Final Result * Vascular US duplex lower extremity venous [...] performed with the patient in reverse trendelenburg. Hris Analyst Details A agrcia scale, color and doppler analysis ultrasound was performed. During the study longitudinal and transverse views were obtained. Pulsed wave doppler was performed. Overall the study quality was technically difficult. us Maia Wallace MD CV VASCULAR PROCE DURES Final Result * [facility] Mammo Digital Diagnostic [...] for biopsy. PQRI CPT II 3342F Code 50379, 16013 PQRI 225 CPT II 7025F TISSUE DENSITY: The breasts are almost entirely fatty. (BI-RADS Category A) IMPRESSION: Benign. BI-RADS CATEGORY: 2 - BENIGN RECOMMENDATION: Screening bilateral mammogram is recommended in 1 year. Mammo Location: [facility], [address] [place] [address] -------- FINAL REPORT -------- Dictated By: Zana Rene Dictated Date: 11/25/2024 09:09 ET Assigned Physician: Zana Rene Reviewed and Electronically Signed By: Zana Rene Signed Date: 11/25/2024 09:17 ET Workstation ID: [id number] Transcribed By: Self Edit Transcribed Date: 11/25/2024 [...] and CC projection is performed in the BrightRolle 2000-D unit. Computer aided detection utilizing the [...] MLO and CC projection is performed in theYapmoographe 2000-D unit. Computer aided detection utilizing the Moy UniverDsystem was utilized. FINDINGS: The breasts are again [...] for biopsy. PQRI CPT II 3342F Code 86240, 87762 PQRI 225 CPT II 7025F TISSUE DENSITY: The breasts are almost entirely fatty. (BI-RADS CategoryA) IMPRESSION: Benign. BI-RADS CATEGORY: 2 - BENIGN RECOMMENDATION: Screening bilateral mammogram is recommended in 1 year. Mammo Location: [facility], [address] [place] [address] -------- FINAL REPORT -------- Dictated By: Zana Rene Dictated Date: 11/25/2024 09:09 ET Assigned Physician: Zana Rene Reviewed and Electronically Signed By: Zana Rene Signed Date: 11/25/2024 09:17 ET Workstation ID: [id number] Transcribed By: Self Edit Transcribed Date: 11/25/2024 09:09 ET Edwin Stover IMG BI PROCEDURES Fin al Result from Last 3 Months Insurance [facility] MEDICARE Member Subscriber Plan / Payer (Ef fective 2023-Present) Name:Maia Roach Relation to Subscriber:Self Name:Maia Roach Payer ID:[id number] Group ID:[id number] Type:Not on file Address: [place] [address] [place] [id number] Care Teams Sugar Grinder Relationship Specialty Start Date End Date Edwin Phillips [address] [place], [place] PCP - General Internal Medicine 11/25/24
== END 2025-02-03 10:32 | disposition home or self-care (01) ==
LOC: HO.HPS 08:59
PROVIDERS: Referring Provider Student in an Organized Health Care Education/Training Program; Visit Provider Physician Assistant Medical
DX: F17.210 Nicotine dependence, cigarettes, uncomplicated (principal)
CPT/HCPCS: G0296

== ENCOUNTER 2025-02-03 09:48 | Outpatient (REF) | payer OTHER, SELFPAY ==
--- NOTE | ~2025-02-03 | CT_ITS ---
EXAMINATION: CT LUNG SCREENING HISTORY: F17.210 - Nicotine dependence, cigarettes, uncomplicated TECHNIQUE: Low dose axial images were obtained from the sternal notch to upper abdomen without IV contrast per standard departmental protocol. Sagittal and coronal reformatted images were also obtained and reviewed. One or more of the following techniques was used for dose reduction: Automated exposure control, adjustment of the mA and/or kV according to patient size, use of iterative reconstruction technique. DLP: 109 mGy-cm COMPARISON: There are no prior studies available for comparison. FINDINGS: Lung nodules: There is a calcified granuloma in the right upper lobe (series 4, image 27). Tiny 2 mm nodules are noted in the left lower lobe (series 4, images 87 and 97). No additional pulmonary nodules are identified. Emphysema: mild Coronary Calcification: severe Aortic Arch Calcification: mild Potentially Significant Incidentals : none Additional Chest Findings: There is no pleural or pericardial effusion. No mediastinal or axillary lymphadenopathy is identified. Visualized upper abdomen: There is a probable 10 mm cyst of the dome of the left lobe of the liver. The visualized portions of the spleen and adrenals have an unremarkable unenhanced appearance. CT/CT lung screening IMPRESSION: No suspicious pulmonary nodules are identified. LUNG-RADS ASSESSMENT: Lung-RADS 2: Benign MANAGEMENT: Continue annual screening with LDCT in 12 months Category S: N/A Electronically signed by: Femi Ramirez MD 02/03/2025 10:25 AM EDT
== END 2025-02-03 09:49 | disposition home or self-care (01) ==
LOC: HO.CT 09:48
PROVIDERS: PCP Student in an Organized Health Care Education/Training Program; Visit Provider Physician Assistant Medical
DX: Z12.2 Encounter for screening for malignant neoplasm of respiratory organs (principal); F17.210 Nicotine dependence, cigarettes, uncomplicated
CPT/HCPCS: 71271; G0296

== ENCOUNTER → 2025-02-03 09:50 | Outpatient (BNV) | payer OTHER, SELFPAY | PROVIDERS: PCP Student in an Organized Health Care Education/Training Program; Visit Provider Radiology Diagnostic Radiology | DX: F17.210 Nicotine dependence, cigarettes, uncomplicated (principal) | CPT/HCPCS: 71271 ==